=== PATIENT | male | born 1970 | race African-American/Black ===

== ENCOUNTER 2016-12-03 09:05 | Inpatient (IN) | payer OTHER ==
[2016-12-03 09:27] VITALS: BMI 28.1
--- NOTE | 2016-12-03 09:29 | HP ---
COWS - Scale Resting Pulse: 1= [place] 81-100 Sweatin= Chills/Flushing Restless Observation: 1= Difficult to Sit Still Pupil Size: 0= Normal to Room Light Bone or Joint Aches: 1= Mild Discomfort Runny Nose/ Eye Tearin= Nasal Congestion GI Upset > 30mins: 1= Stomach Cramp Tremor Observation: 1= Tremor [place], Not Seen Yawning Observation: 1= 1-2x During Session Anxiety or Irritability: 1=Feels Anxious/Irritable Goose Flesh Skin: 0=Smooth Skin COWS Score: 9 Admission ROS BHS - HPI Chief Complaint: I want my life back, I want to get off the drugs - I'm using too much heroin Allergies/Adverse Reactions: Allergies Allergy/AdvReac Type Severity Reaction Status Date / Time No Known Drug Allergies Allergy Verified 09/08/16 13:44 BOLOGNA Allergy Severe Hives Uncoded 09/08/16 13:44 History of Present Illness: 46 yo gentleman here for detox from heroin - longest time sober 8 years, last here in september 2016 for detox, tried suboxone for several months but unable to stop using heroin. No seizures. Exam Limitations: Clinical Condition - Ebola screening Have you traveled outside of the country in the last 21 days: No Have you had contact with anyone from an Ebola affected area: No Have you been sick,other than usual withdrawal symptoms: No Do you have a fever: No - Review of Systems Constitutional: Chills, Loss of Appetite, Malaise, Night Sweats, Changes in sleep EENT: reports: Blurred Vision, Nose Congestion Respiratory: reports: No Symptoms reported Cardiac: reports: No Symptoms Reported GI: reports: Diarrhea, Poor Appetite : reports: No Symptoms Reported Musculoskeletal: reports: Back Pain, Muscle Pain Integumentary: reports: Flushing Neuro: reports: Headache Endocrine: reports: No Symptoms Reported Hematology: reports: No Symptoms Reported Psychiatric: reports: Judgement Intact, Mood/Affect Appropiate, Orientated x3, Anxious Other Systems: Reviewed and Negative Patient History - Patient Medical History Hx Anemia: No Hx Asthma: No Hx Chronic Obstructive Pulmonary Disease (COPD): No Hx Cancer: No Hx Cardiac Disorders: No Hx Congestive Heart Failure: No Hx Hypertension: Yes Hx Hypercholesterolemia: No Hx Pacemaker: No HX Cerebrovascular Accident: No Hx Seizures: No Hx Dementia: No Hx Diabetes: No Hx Gastrointestinal Disorders: No Hx Liver Disease: No Hx Genitourinary Disorders: No Hx Sexually Transmitted Disorders: No Hx Renal Disease (ESRD): No Hx Thyroid Disease: No Hx Human Immunodeficiency Virus (HIV): No (NEGATIVE HX) Hx Hepatitis C: No Hx Depression: No Hx Suicide Attempt: No Hx Bipolar Disorder: No Hx Schizophrenia: No - Patient Surgical History Past Surgical History: No Hx Neurologic Surgery: No Hx Cataract Extraction: No Hx Cardiac Surgery: No Hx Lung Surgery: No Hx Breast Surgery: No Hx Breast Biopsy: No Hx Abdominal Surgery: No Hx Appendectomy: No Hx Cholecystectomy: No Hx Genitourinary Surgery: No Hx Section: No Hx Orthopedic Surgery: No Anesthesia Reaction: No - PPD History Previous Implant?: Yes Documented Results: Positive w/proof Implanted On Prior [facility] Admission?: No Date: 02/19/16 Results: 0 mm PPD to be Administered?: Yes - Reproductive History Patient is a Female of Child Bearing Age (11 -55 yrs old): No (male) - Smoking Cessation Smoking history: Current every day smoker Have you smoked in the past 12 months: Yes Aproximately how many cigarettes per day: 10 Cigars Per Day: 0 Hx Chewing Tobacco Use: No Initiated information on smoking cessation: Yes 'Breaking Loose' booklet given: 12/03/16 (give on floor) - Substance & Tx. History Hx Alcohol Use: No Hx Substance Use: Yes Substance Use Type: Heroin, Tranquilizers Hx Substance Use Treatment: Yes (detox, rehab) - Substances Abused Alprazolam (Xanax) Frequency: 1-2 times per week Amount used: 4mg Age of first use: 32 Date of Last Use: 11/29/16 Heroin Route: Inhalation Frequency: Daily Amount used: 20 bags Age of first use: 18 Date of Last Use: 12/03/16 Family Disease History - Family Disease History Family Disease History: Diabetes: Father, Other: Grandparent () Admission Physical Exam BHS - Vital Signs Vital Signs: Vital Signs - 24 hr 12/03/16 09:24 Temperature 97.6 F Pulse Rate 81 Respiratory 20 Rate Blood Pressure 132/71 - Physical General Appearance: Yes: Nourished, Appropriately Dressed, Mild Distress HEENTM: Yes: Hearing grossly Normal, Normocephalic, Normal Voice, Pharynx Normal , Nasal Congestion Respiratory: Yes: Normal Breath Sounds, No Respiratory Distress Neck: Yes: No masses,lesions,Nodules, Supple Breast: Yes: Breast Exam Deferred Cardiology: Yes: Regular Rhythm, Regular Rate Abdominal: Yes: Soft Genitourinary: Yes: Within Normal Limits Back: Yes: Normal Inspection Musculoskeletal: Yes: full range of Motion, Gait Steady, Muscle Pain Extremities: Yes: Normal Inspection, Normal Range of Motion, Non-Tender Neurological: Yes: Fully Oriented, Alert, Normal Mood/Affect, Normal Response Integumentary: Yes: Normal Color, Warm, Moist Lymphatic: Yes: Within Normal Limits - Diagnostic (1) HTN (hypertension) Current Visit: Yes Status: Chronic Qualifiers: Hypertension type: essential hypertension (2) Nicotine dependence Current Visit: Yes Status: Chronic Qualifiers: Nicotine product type: cigarettes Substance use status: uncomplicated Qualified Code(s): F17.210 - Nicotine dependence, cigarettes, uncomplicated (3) Opioid dependence with withdrawal Current Visit: Yes Status: Chronic (4) Benzodiazepine abuse Current Visit: Yes Status: Chronic Cleared for Admission [facility] - Detox or Rehab [facility] Level of Care: Medically Managed Detox Regimen/Protocol: Methadone [facility] Breath Alcohol Content Breath Alcohol Content: 0 Urine Drug Screen - Results Drug Screen Negative: No Urine Drug Screen Results: OPI-Opiates, BZO-Benzodiazepines
[2016-12-03] MEDS ORDERED: MAGNESIUM CITRATE 300 ML BOTTLE PO PRN (09:40)
[2016-12-03] MEDS ORDERED: P-EPHED 60MG/TRIPROLIDI 2.5MG TABLET PO PRN (09:40)
[2016-12-03] MEDS ORDERED: MAG HYDROX/AL HYDROX/SIMETH 30 ML UNIT-DOSE CUP PO PRN (09:40)
[2016-12-03] MEDS ORDERED: LOPERAMIDE HCL 2 MG CAPSULE PO PRN (09:40)
[2016-12-03] MEDS ORDERED: MENTHOL/PHENOL 1 EACH UD MM PRN (09:40)
[2016-12-03] MEDS ORDERED: guaiFENesin/D-METHORPHAN HB 10 ML UNIT-DOSE CUPS PO PRN (09:40)
[2016-12-03] MEDS ORDERED: MAGNESIUM HYDROX 2400MG/30ML ORAL SUSPENSION 30 ML CUP PO PRN (09:40)
[2016-12-03] MEDS ORDERED: ACETAMINOPHEN 325 MG TABLET (FP) PO PRN (09:40)
[2016-12-03] MEDS ORDERED: IBUPROFEN 400 MG TABLET (FP) PO PRN (09:40)
[2016-12-03] MEDS ORDERED: METHADONE HCL 10 MG TABLET (FOR DETOX USE ONLY) PO ONE ×2 (11:00→23:00)
[2016-12-03] MEDS: diazePAM 5 MG TABLET PO PRN ×3 (11:45→22:26)
[2016-12-03] MEDS: PRENATAL VITAMINS W/ FOLIC ACID TABLET (FP) PO SCH (11:46)
[2016-12-03] MEDS: amLODIPine BESYLATE 10 MG TABLET (FP) PO SCH (11:46)
[2016-12-03] MEDS: NICOTINE 21 MG/24 HOURS TOPICAL PATCH TD SCH (11:47)
[2016-12-03 12:44] LABS: URINE APPEARANCE CLEAR; URINE BILIRUBIN NEGATIVE (NEGATIVE); URINE BLOOD NEGATIVE (NEGATIVE); URINE COLOR DKYELLOW; URINE GLUCOSE (UA) NEGATIVE (NEGATIVE); URINE KETONE NEGATIVE (NEGATIVE); URINE LEUK ESTERASE NEGATIVE (NEGATIVE); URINE NITRITE NEGATIVE (NEGATIVE); URINE PROTEIN NEGATIVE (NEGATIVE); URINE UROBILINOGEN 4.0 E.U/dl E.U./dl (0.2-1.0)
--- NOTE | 2016-12-03 21:01 | EKG ---
Test Reason : Blood Pressure : / mmHG Vent. Rate : 072 BPM Atrial Rate : 072 BPM P-R Int : 142 ms QRS Dur : 074 ms QT Int : 412 ms P-R-T Axes : 065 029 037 degrees QTc Int : 451 ms NORMAL SINUS RHYTHM NORMAL ECG WHEN COMPARED WITH ECG OF 24-JUN-2016 00:25, CRITERIA FOR SEPTAL INFARCT ARE NO LONGER PRESENT Confirmed by MELISSA VARGAS MD ([id number]) on 12/03/2016 9:00:49 PM Referred By: Confirmed By:MELISSA VARGAS MD
[2016-12-03] MEDS ORDERED: diphenhydrAMINE HCL 50 MG CAPSULE PO PRN (22:00)
[2016-12-03] MEDS: THIAMINE HCL 100 MG TABLET (FP) PO SCH (22:25)
[2016-12-04] MEDS: diazePAM 5 MG TABLET PO PRN ×4 (03:38→19:22)
[2016-12-04] MEDS ORDERED: METHADONE HCL 10 MG TABLET (FOR DETOX USE ONLY) PO ONE (10:00)
[2016-12-04 10:19] LABS: MCH 32.9 pg (25.7-33.7); MCHC 33.8 g/dl (32.0-35.9); MEAN CELL VOLUME 97.2 fl (80-96); MEAN PLT VOLUME 8.4 fl (7.5-11.1); PLATELET COUNT 194 K/MM3 (134-434); WHITE BLOOD COUNT 6.9 K/mm3 (4.0-10.0)
[2016-12-04] MEDS: PRENATAL VITAMINS W/ FOLIC ACID TABLET (FP) PO SCH (10:36)
[2016-12-04] MEDS: amLODIPine BESYLATE 10 MG TABLET (FP) PO SCH (10:36)
[2016-12-04] MEDS: NICOTINE 21 MG/24 HOURS TOPICAL PATCH TD SCH (10:36)
[2016-12-04 10:43] LABS: ALBUMIN 3.3 g/dl (3.4-5.0); ALK PHOS 90 U/L (45-117); ANION GAP 7 (8-16); BILIRUBIN,TOTAL 0.6 mg/dL (0.2-1.0); CALCIUM 8.7 mg/dL (8.5-10.1); CO2 28 mmol/L (21-32); CREATININE 0.8 mg/dL (0.7-1.3); GLUCOSE,RANDOM 90 mg/dL (74-106); SGOT/AST 10 U/L (15-37); SGPT/ALT 42 U/L (12-78); TOT PROT 6.1 g/dl (6.4-8.2)
[2016-12-04 14:47] LABS: HIV 1 & 2 AB NEGATIVE; HIV 1 AGp24 NEGATIVE
--- NOTE | 2016-12-04 16:03 | PN ---
S CIWA - CIWA Score Nausea/Vomitin Muscle Tremors: 3 Anxiety: 4-Mod. Anxious/Guarded Agitation: 3 Paroxysmal Sweats: No Perspiration Orientation: 0-Oriented Tacttile Disturbances: 1-Very Mild Itch/Numbness Auditory Disturbances: 0-None Visual Disturbances: 0-None Headache: 3-Moderate CIWA-Ar Total Score: 16 BHS Progress Note (SOAP) Subjective: Headache, nausea, sweating, interrupted sleep, anxious Objective: 12/04/16 16:02 Last Vital Signs Temp Pulse Resp BP Pulse Ox 96.6 F L 70 18 126/87 12/04/16 13:37 12/04/16 13:37 12/04/16 13:37 12/04/16 13:37 Laboratory Tests 12/03/16 12/04/16 12/04/16 10:30 08:00 08:00 WBC 6.9 RBC 4.06 Hgb 13.3 D Hct 39.4 MCV 97.2 H MCHC 33.8 RDW 13.0 Plt Count 194 MPV 8.4 Sodium 141 Potassium 4.0 Chloride 106 Carbon Dioxide 28 Anion Gap 7 L BUN 8 Creatinine 0.8 Creat Clearance w eGFR > 60 Random Glucose 90 D Calcium 8.7 Total Bilirubin 0.6 D AST 10 L D ALT 42 Alkaline Phosphatase 90 D Total Protein 6.1 L Albumin 3.3 L Urine Color Dkyellow Urine Appearance Clear Urine pH 6.0 D Ur Specific [place] 1.026 Urine Protein Negative Urine Glucose (UA) Negative Urine Ketones Negative Urine Blood Negative Urine Nitrite Negative Urine Bilirubin Negative Urine Urobilinogen 4.0 e.u/dl Ur Leukocyte Esterase Negative RPR Titer HIV 1&2 Antibody Screen HIV P24 Antigen 12/04/16 12/04/16 08:00 08:00 WBC RBC Hgb Hct MCV MCHC RDW Plt Count MPV Sodium Potassium Chloride Carbon Dioxide Anion Gap BUN Creatinine Creat Clearance w eGFR Random Glucose Calcium Total Bilirubin AST ALT Alkaline Phosphatase Total Protein Albumin Urine Color Urine Appearance Urine pH Ur Specific [place] Urine Protein Urine Glucose (UA) Urine Ketones Urine Blood Urine Nitrite Urine Bilirubin Urine Urobilinogen Ur Leukocyte Esterase RPR Titer Nonreactive HIV 1&2 Antibody Screen Negative HIV P24 Antigen Negative Labs noted Assessment: 12/04/16 16:03 Withdrawal symptoms Plan: Continue detox
--- NOTE | 2016-12-04 16:09 | PN ---
[facility] Progress Note Note: CIWA entered in error [facility] COWS - Scale Resting Pulse: 1= [place] 81-100 Sweatin= Chills/Flushing Restless Observation: 3= Extraneous Movement Pupil Size: 0= Normal to Room Light Bone or Joint Aches: 2= Severe Diffuse Aches Runny Nose/ Eye Tearin= Runny Nose/Eyes GI Upset > 30mins: 2= Nausea/Diarrhea Tremor Observation of Outstretched Hands: 2= Slight Tremor Visible Yawning Observation: 1= 1-2x During Session Anxiety or Irritability: 2=Irritable/Anxious Goose Flesh Skin: 0=Smooth Skin COWS Score: 16
[2016-12-04] MEDS: THIAMINE HCL 100 MG TABLET (FP) PO SCH (22:38)
[2016-12-05] MEDS: diazePAM 5 MG TABLET PO PRN ×5 (00:40→19:09)
[2016-12-05] MEDS ORDERED: METHADONE HCL 5 MG TABLET (FOR DETOX USE ONLY) PO ONE (10:00)
[2016-12-05] MEDS: amLODIPine BESYLATE 10 MG TABLET (FP) PO SCH (10:24)
[2016-12-05] MEDS: NICOTINE 21 MG/24 HOURS TOPICAL PATCH TD SCH (10:24)
[2016-12-05] MEDS: PRENATAL VITAMINS W/ FOLIC ACID TABLET (FP) PO SCH (10:25)
--- NOTE | 2016-12-05 10:50 | PN ---
BHS COWS - Scale Resting Pulse: 0= [place] 80 or Below Sweatin=Flushed/Facial Moisture Restless Observation: 1= Difficult to Sit Still Pupil Size: 0= Normal to Room Light Bone or Joint Aches: 2= Severe Diffuse Aches Runny Nose/ Eye Tearin= Runny Nose/Eyes GI Upset > 30mins: 2= Nausea/Diarrhea Tremor Observation of Outstretched Hands: 2= Slight Tremor Visible Yawning Observation: 1= 1-2x During Session Anxiety or Irritability: 2=Irritable/Anxious Goose Flesh Skin: 0=Smooth Skin COWS Score: 14 BHS Progress Note (SOAP) Subjective: Anxiety,tremors,sweating,interrupted sleep,restless Objective: 12/05/16 10:48 Vital Signs - 8 hr 12/05/16 12/05/16 12/05/16 03:35 06:13 09:59 Temperature 97.8 F 97.3 F L Pulse Rate 66 64 Respiratory 18 18 18 Rate Blood Pressure 109/67 124/77 Laboratory Tests 12/03/16 12/04/16 12/04/16 10:30 08:00 08:00 WBC 6.9 RBC 4.06 Hgb 13.3 D Hct 39.4 MCV 97.2 H MCHC 33.8 RDW 13.0 Plt Count 194 MPV 8.4 Sodium 141 Potassium 4.0 Chloride 106 Carbon Dioxide 28 Anion Gap 7 L BUN 8 Creatinine 0.8 Creat Clearance w eGFR > 60 Random Glucose 90 D Calcium 8.7 Total Bilirubin 0.6 D AST 10 L D ALT 42 Alkaline Phosphatase 90 D Total Protein 6.1 L Albumin 3.3 L Urine Color Dkyellow Urine Appearance Clear Urine pH 6.0 D Ur Specific [place] 1.026 Urine Protein Negative Urine Glucose (UA) Negative Urine Ketones Negative Urine Blood Negative Urine Nitrite Negative Urine Bilirubin Negative Urine Urobilinogen 4.0 e.u/dl Ur Leukocyte Esterase Negative RPR Titer HIV 1&2 Antibody Screen HIV P24 Antigen 12/04/16 12/04/16 08:00 08:00 WBC RBC Hgb Hct MCV MCHC RDW Plt Count MPV Sodium Potassium Chloride Carbon Dioxide Anion Gap BUN Creatinine Creat Clearance w eGFR Random Glucose Calcium Total Bilirubin AST ALT Alkaline Phosphatase Total Protein Albumin Urine Color Urine Appearance Urine pH Ur Specific [place] Urine Protein Urine Glucose (UA) Urine Ketones Urine Blood Urine Nitrite Urine Bilirubin Urine Urobilinogen Ur Leukocyte Esterase RPR Titer Nonreactive HIV 1&2 Antibody Screen Negative HIV P24 Antigen Negative labs noted Assessment: 12/05/16 10:49 Withdrawal sx. Plan: continue detox
[2016-12-05] MEDS: THIAMINE HCL 100 MG TABLET (FP) PO SCH (22:32)
[2016-12-06] MEDS: diazePAM 5 MG TABLET PO PRN (05:51)
[2016-12-06] MEDS ORDERED: METHADONE HCL 5 MG TABLET (FOR DETOX USE ONLY) PO ONE (10:00)
[2016-12-06] MEDS: amLODIPine BESYLATE 10 MG TABLET (FP) PO SCH (10:28)
[2016-12-06] MEDS: NICOTINE 21 MG/24 HOURS TOPICAL PATCH TD SCH (10:28)
[2016-12-06] MEDS: PRENATAL VITAMINS W/ FOLIC ACID TABLET (FP) PO SCH (10:28)
[2016-12-06] MEDS: hydrOXYzine PAMOATE 50 MG CAPSULE (FP) PO PRN ×2 (10:28→20:19)
--- NOTE | 2016-12-06 10:47 | PN ---
BHS Progress Note (SOAP) Subjective: ANXIETY,SWEATS,FATIGUE. Objective: 12/06/16 10:47 Vital Signs Temperature 98.1 F 12/06/16 09:58 Pulse Rate 71 12/06/16 09:58 Respiratory Rate 20 12/06/16 09:58 Blood Pressure 121/73 12/06/16 09:58 O2 Sat by Pulse Oximetry (%) Assessment: 12/06/16 10:47 WITHDRAWAL SX Plan: CONTINUE DETOX
[2016-12-06] MEDS: THIAMINE HCL 100 MG TABLET (FP) PO SCH (22:40)
[2016-12-07 06:05] VITALS: BP 117/67; PULSE 73; TEMP 97.6
[2016-12-07] MEDS: PRENATAL VITAMINS W/ FOLIC ACID TABLET (FP) PO SCH (09:30)
[2016-12-07] MEDS: amLODIPine BESYLATE 10 MG TABLET (FP) PO SCH (09:30)
[2016-12-07] MEDS: NICOTINE 21 MG/24 HOURS TOPICAL PATCH TD SCH (09:31)
[2016-12-07] MEDS ORDERED: METHADONE HCL 10 MG TABLET (FOR DETOX USE ONLY) PO ONE (10:00)
--- NOTE | 2016-12-07 12:28 | DS ---
[facility] Detox Discharge Summary Admission Date: 12/03/16 Discharge Date: 12/07/16 - History Present History: Opioid Dependence, Sedative Dependence Additional Comments: DETOX COMPLETED. ALERT O X 3. NAD. Pertinent Past History: HTN - Physical Exam Results Vital Signs: Vital Signs Temperature 97.6 F 12/07/16 06:05 Pulse Rate 73 12/07/16 06:05 Respiratory Rate 18 12/07/16 06:05 Blood Pressure 117/67 12/07/16 06:05 O2 Sat by Pulse Oximetry (%) Pertinent Admission Physical Exam Findings: WITHDRAWAL SX - Treatment Hospital Course: Detox Protocol Followed, Detoxed Safely, Responded well, Discharged Condition Good - Medication Discharge Medications: Ambulatory Orders Amlodipine Besylate 10 mg PO DAILY 07/03/16 Benazepril HCl [Lotensin] 40 mg PO DAILY 07/03/16 - Diagnosis (1) HTN (hypertension) Status: Chronic Qualifiers: Hypertension type: essential hypertension (2) Opioid dependence with withdrawal Status: Acute (3) Sedative, hypnotic or anxiolytic dependence with withdrawal, uncomplicated Status: Acute - AMA Did Patient Leave Against Medical Advice: No
[2016-12-08 00:08] LABS: HCV LOG 10 5.332 (.)
[2016-12-08] MEDS ORDERED: METHADONE HCL 5 MG TABLET (FOR DETOX USE ONLY) PO ONE (06:00)
== END 2016-12-07 09:38 | disposition home or self-care (01) | DRG 773 ==
LOC: YASAS 09:05 → Y3N 10:13
PROVIDERS: ADMIT Internal Medicine; ATTEND Internal Medicine
PROC: HZ2ZZZZ Detoxification Services for Substance Abuse Treatment (ICD-10-PCS; principal; 2016-12-07)
DX: F11.23 Opioid dependence with withdrawal (principal); F17.210 Nicotine dependence, cigarettes, uncomplicated; F13.10 Sedative, hypnotic or anxiolytic abuse, uncomplicated; I10 Essential (primary) hypertension
CPT/HCPCS: 36415; 80053; 81003; 85027; 86593; 87389; 87522; 93005; 93010

== ENCOUNTER 2017-06-10 11:57 | Inpatient (IN) | payer OTHER ==
[2017-06-10 12:21] VITALS: BMI 27.0
--- NOTE | 2017-06-10 12:40 | HP ---
COWS - Scale Resting Pulse: 0= [place] 80 or Below Sweatin= Chills/Flushing Restless Observation: 1= Difficult to Sit Still Pupil Size: 0= Normal to Room Light Bone or Joint Aches: 1= Mild Discomfort Runny Nose/ Eye Tearin= Nasal Congestion GI Upset > 30mins: 1= Stomach Cramp Tremor Observation: 1= Tremor [place], Not Seen Yawning Observation: 1= 1-2x During Session Anxiety or Irritability: 1=Feels Anxious/Irritable Goose Flesh Skin: 0=Smooth Skin COWS Score: 8 Admission ROS BHS - HPI Chief Complaint: I'm ready to get my life back, being clean is the best, I want to be a good father, stop using Allergies/Adverse Reactions: Allergies Allergy/AdvReac Type Severity Reaction Status Date / Time No Known Drug Allergies Allergy Verified 12/03/16 10:18 BOLOGNA Allergy Severe Hives Uncoded 09/08/16 13:44 History of Present Illness: 46 yo gentleman here for detox from heroin - last in detox in [place] April2017 but relapsed shortly upon discharge. No seizures but does have black outs. Exam Limitations: Clinical Condition - Ebola screening Have you traveled outside of the country in the last 21 days: No Have you had contact with anyone from an Ebola affected area: No Have you been sick,other than usual withdrawal symptoms: No Do you have a fever: No - Review of Systems Constitutional: Loss of Appetite, Night Sweats, Changes in sleep, Weakness, Unintentional Wgt. Loss EENT: reports: No Symptoms Reported Respiratory: reports: No Symptoms reported Cardiac: reports: No Symptoms Reported GI: reports: Constipated, Poor Appetite : reports: No Symptoms Reported Musculoskeletal: reports: Back Pain Integumentary: reports: No Symptoms Reported Neuro: reports: Headache Endocrine: reports: No Symptoms Reported Hematology: reports: No Symptoms Reported Psychiatric: reports: Judgement Intact, Mood/Affect Appropiate, Orientated x3, Anxious Other Systems: Reviewed and Negative Patient History - Patient Medical History Hx Anemia: No Hx Asthma: No Hx Chronic Obstructive Pulmonary Disease (COPD): No Hx Cancer: No Hx Cardiac Disorders: No Hx Congestive Heart Failure: No Hx Hypertension: Yes Hx Hypercholesterolemia: No Hx Pacemaker: No HX Cerebrovascular Accident: No Hx Seizures: No Hx Dementia: No Hx Diabetes: No Hx Gastrointestinal Disorders: No Hx Liver Disease: No Hx Genitourinary Disorders: No Hx Sexually Transmitted Disorders: No Hx Renal Disease (ESRD): No Hx Thyroid Disease: No Hx Human Immunodeficiency Virus (HIV): No Hx Hepatitis C: Yes (awaiting approval med for treatement) Hx Depression: No Hx Suicide Attempt: No Hx Bipolar Disorder: No Hx Schizophrenia: No - Patient Surgical History Past Surgical History: No Hx Neurologic Surgery: No Hx Cataract Extraction: No Hx Cardiac Surgery: No Hx Lung Surgery: No Hx Breast Surgery: No Hx Breast Biopsy: No Hx Abdominal Surgery: No Hx Appendectomy: No Hx Cholecystectomy: No Hx Genitourinary Surgery: No Hx Section: No Hx Orthopedic Surgery: No Anesthesia Reaction: No - PPD History Previous Implant?: Yes Documented Results: Negative w/proof Date: 02/19/16 Results: 0 mm PPD to be Administered?: Yes - Reproductive History Patient is a Female of Child Bearing Age (11 -55 yrs old): No (male) - Smoking Cessation Smoking history: Current every day smoker Have you smoked in the past 12 months: Yes Aproximately how many cigarettes per day: 10 Cigars Per Day: 0 Hx Chewing Tobacco Use: No Initiated information on smoking cessation: Yes 'Breaking Loose' booklet given: 06/10/17 (give on floor) - Substance & Tx. History Hx Alcohol Use: No Hx Substance Use: Yes Substance Use Type: Heroin, Tranquilizers Hx Substance Use Treatment: Yes (detox, ) - Substances Abused Heroin Route: Inhalation Frequency: Daily Amount used: 20 bags Age of first use: 18 Date of Last Use: 06/10/17 Alprazolam (Xanax) Route: Oral Frequency: 1-2 times per week Amount used: 2-4 mg Age of first use: 34 Date of Last Use: 06/08/17 Family Disease History - Family Disease History Family Disease History: Other: Grandparent (), Father (living, healthy) , Mother (living, healthy), Sister (5 , healthy), Son (one - healthy), Daughter (two - healthy) Admission Physical Exam BHS - Vital Signs Vital Signs: Vital Signs - 24 hr 06/10/17 12:17 Temperature 98.1 F Pulse Rate 79 Respiratory 20 Rate Blood Pressure 138/85 - Physical General Appearance: Yes: Nourished, Appropriately Dressed, Mild Distress, Anxious HEENTM: Yes: Hearing grossly Normal, Normal ENT Inspection, Normocephalic, Normal Voice, Pharynx Normal, [place] (scarring on bridge of nose due to fall in past) Respiratory: Yes: Normal Breath Sounds, No Respiratory Distress Neck: Yes: No masses,lesions,Nodules, Supple Breast: Yes: Breast Exam Deferred Cardiology: Yes: Regular Rhythm, Regular Rate Abdominal: Yes: Soft Genitourinary: Yes: Within Normal Limits Back: Yes: Normal Inspection Musculoskeletal: Yes: full range of Motion, Gait Steady Extremities: Yes: Normal Inspection, Normal Range of Motion, Non-Tender Neurological: Yes: Fully Oriented, Alert, Motor Strength 5/5, Normal Mood/Affect Integumentary: Yes: Normal Color, Warm Lymphatic: Yes: Within Normal Limits - Diagnostic (1) Opioid dependence with withdrawal Current Visit: Yes Status: Chronic (2) Benzodiazepine abuse Current Visit: Yes Status: Chronic (3) HTN (hypertension) Current Visit: Yes Status: Chronic Qualifiers: Hypertension type: other secondary hypertension Qualified Code(s): I15.8 - Other secondary hypertension Comment: states related to drinking (4) Nicotine dependence Current Visit: Yes Status: Chronic Qualifiers: Nicotine product type: cigarettes Substance use status: uncomplicated Qualified Code(s): F17.210 - Nicotine dependence, cigarettes, uncomplicated Cleared for Admission [facility] - Detox or Rehab [facility] Level of Care: Medically Managed Detox Regimen/Protocol: Methadone [facility] Breath Alcohol Content Breath Alcohol Content: 0 Urine Drug Screen - Results Drug Screen Negative: No Urine Drug Screen Results: OPI-Opiates, BAR-Barbiturates, BZO-Benzodiazepines, MTD-Methadone
[2017-06-10] MEDS ORDERED: LOPERAMIDE HCL 2 MG CAPSULE PO PRN (12:46)
[2017-06-10] MEDS ORDERED: METHADONE HCL 10 MG TABLET (FOR DETOX USE ONLY) PO ONE ×2 (12:46→23:00)
[2017-06-10] MEDS ORDERED: MAGNESIUM CITRATE 300 ML BOTTLE PO PRN (12:46)
[2017-06-10] MEDS ORDERED: IBUPROFEN 400 MG TABLET (FP) PO PRN (12:46)
[2017-06-10] MEDS ORDERED: P-EPHED 60MG/TRIPROLIDI 2.5MG TABLET PO PRN (12:46)
[2017-06-10] MEDS ORDERED: guaiFENesin/D-METHORPHAN HB 10 ML UNIT-DOSE CUPS PO PRN (12:46)
[2017-06-10] MEDS ORDERED: MAGNESIUM HYDROX 2400MG/30ML ORAL SUSPENSION 30 ML CUP PO PRN (12:46)
[2017-06-10] MEDS ORDERED: MENTHOL/PHENOL 1 EACH UD MM PRN (12:46)
[2017-06-10] MEDS ORDERED: hydrOXYzine PAMOATE 50 MG CAPSULE (FP) PO PRN (12:46)
[2017-06-10] MEDS ORDERED: MAG HYDROX/AL HYDROX/SIMETH 30 ML UNIT-DOSE CUP PO PRN (12:46)
[2017-06-10] MEDS ORDERED: ACETAMINOPHEN 325 MG TABLET (FP) PO PRN (12:46)
[2017-06-10 15:44] LABS: URINE APPEARANCE CLEAR; URINE BILIRUBIN NEGATIVE (NEGATIVE); URINE BLOOD NEGATIVE (NEGATIVE); URINE COLOR YELLOW; URINE GLUCOSE (UA) NEGATIVE (NEGATIVE); URINE KETONE NEGATIVE (NEGATIVE); URINE LEUK ESTERASE NEGATIVE (NEGATIVE); URINE NITRITE NEGATIVE (NEGATIVE); URINE PROTEIN NEGATIVE (NEGATIVE)
[2017-06-10] MEDS ORDERED: METHADONE HCL 10 MG TABLET (FOR DETOX USE ONLY) ONE (16:23)
[2017-06-10] MEDS: NICOTINE 21 MG/24 HOURS TOPICAL PATCH TD SCH (17:03)
[2017-06-10] MEDS: diazePAM 5 MG TABLET PO PRN (20:10)
[2017-06-10] MEDS: diphenhydrAMINE HCL 50 MG CAPSULE PO PRN (22:06)
[2017-06-10] MEDS: THIAMINE HCL 100 MG TABLET (FP) PO SCH (22:06)
[2017-06-11] MEDS: diazePAM 5 MG TABLET PO PRN ×4 (05:24→22:16)
[2017-06-11] MEDS ORDERED: METHADONE HCL 10 MG TABLET (FOR DETOX USE ONLY) PO ONE (10:00)
[2017-06-11] MEDS: LISINOPRIL 20 MG TABLET (FP) PO SCH (10:04)
[2017-06-11] MEDS: amLODIPine BESYLATE 10 MG TABLET (FP) PO SCH (10:04)
[2017-06-11] MEDS: PRENATAL VITAMINS W/ FOLIC ACID TABLET (FP) PO SCH (10:04)
[2017-06-11] MEDS: NICOTINE 21 MG/24 HOURS TOPICAL PATCH TD SCH (10:05)
[2017-06-11 10:27] LABS: MCH 32.7 pg (25.7-33.7); MCHC 32.7 g/dl (32.0-35.9); MEAN CELL VOLUME 100.1 fl (80-96); MEAN PLT VOLUME 8.5 fl (7.5-11.1); PLATELET COUNT 211 K/MM3 (134-434); RDW 13.5 % (11.9-15.9); WHITE BLOOD COUNT 7.4 K/mm3 (4.0-10.0)
[2017-06-11 11:07] LABS: ALBUMIN 3.1 g/dl (3.4-5.0); ALK PHOS 102 U/L (45-117); ANION GAP 9 (8-16); BILIRUBIN,TOTAL 0.7 mg/dL (0.2-1.0); CALCIUM 8.6 mg/dL (8.5-10.1); CO2 28 mmol/L (21-32); CREATININE 0.7 mg/dL (0.7-1.3); GLUCOSE,RANDOM 115 mg/dL (74-106); SGOT/AST 18 U/L (15-37); SGPT/ALT 61 U/L (12-78)
--- NOTE | 2017-06-11 14:02 | EKG ---
Test Reason : Blood Pressure : / mmHG Vent. Rate : 063 BPM Atrial Rate : 063 BPM P-R Int : 134 ms QRS Dur : 080 ms QT Int : 430 ms P-R-T Axes : 043 040 035 degrees QTc Int : 440 ms NORMAL SINUS RHYTHM ATYPICAL R PROGRESSION IN V2 WHEN COMPARED WITH ECG OF 03-DEC-2016 12:27, DECREASE IN R VOLTAGE IN V2 REPEAT EKG IF CLINICALLY INDICATED Confirmed by CHERRIE RUEDA MD ([id number] on 06/11/2017 2:02:22 PM Referred By: Confirmed By:CHERRIE RUEDA MD
--- NOTE | 2017-06-11 14:06 | PN ---
[facility] CIWA - CIWA Score Nausea/Vomitin-Mild Nausea/No Vomiting Muscle Tremors: 3 Anxiety: 3 Agitation: 1-Slight > Activity Paroxysmal Sweats: No Perspiration Orientation: 0-Oriented Tacttile Disturbances: 3-Moderate Itch/Numb/Burn Auditory Disturbances: 2-Mild Harshness/Frighten Visual Disturbances: 3-Moderate Sensitivity Headache: 0-None Present CIWA-Ar Total Score: 16 BHS Progress Note (SOAP) Subjective: Interrupted sleep, Tremors, Fatigue. Objective: PT. A & O X 3. NO ACUTE DISTRESS 06/11/17 14:03 Vital Signs Temperature 97 F L 06/11/17 10:22 Pulse Rate 80 06/11/17 10:22 Respiratory Rate 18 06/11/17 10:22 Blood Pressure 125/88 06/11/17 10:22 O2 Sat by Pulse Oximetry (%) Laboratory Tests 06/10/17 06/11/17 06/11/17 15:35 07:00 07:00 WBC 7.4 RBC 4.14 Hgb 13.6 Hct 41.5 MCV 100.1 H MCH 32.7 MCHC 32.7 RDW 13.5 Plt Count 211 MPV 8.5 Sodium 141 Potassium 4.7 Chloride 104 Carbon Dioxide 28 Anion Gap 9 BUN 13 D Creatinine 0.7 Creat Clearance w eGFR > 60 Random Glucose 115 H D Calcium 8.6 Total Bilirubin 0.7 AST 18 D ALT 61 D Alkaline Phosphatase 102 Total Protein 6.0 L Albumin 3.1 L Urine Color Yellow Urine Appearance Clear Urine pH 5.0 Ur Specific [place] >= 1.030 H Urine Protein Negative Urine Glucose (UA) Negative Urine Ketones Negative Urine Blood Negative Urine Nitrite Negative Urine Bilirubin Negative Urine Urobilinogen 2.0 Ur Leukocyte Esterase Negative RPR Titer 06/11/17 07:00 WBC RBC Hgb Hct MCV MCH MCHC RDW Plt Count MPV Sodium Potassium Chloride Carbon Dioxide Anion Gap BUN Creatinine Creat Clearance w eGFR Random Glucose Calcium Total Bilirubin AST ALT Alkaline Phosphatase Total Protein Albumin Urine Color Urine Appearance Urine pH Ur Specific [place] Urine Protein Urine Glucose (UA) Urine Ketones Urine Blood Urine Nitrite Urine Bilirubin Urine Urobilinogen Ur Leukocyte Esterase RPR Titer Nonreactive LABS NOTED. Assessment: WITHDRAWAL SYMPTOMS. 06/11/17 14:04 Plan: CONTINUE DETOX.
[2017-06-11] MEDS: THIAMINE HCL 100 MG TABLET (FP) PO SCH (22:16)
[2017-06-11] MEDS: diphenhydrAMINE HCL 50 MG CAPSULE PO PRN (22:16)
[2017-06-12] MEDS: diazePAM 5 MG TABLET PO PRN ×4 (05:52→22:07)
[2017-06-12] MEDS ORDERED: METHADONE HCL 5 MG TABLET (FOR DETOX USE ONLY) PO ONE (10:00)
[2017-06-12] MEDS: PRENATAL VITAMINS W/ FOLIC ACID TABLET (FP) PO SCH (10:02)
[2017-06-12] MEDS: amLODIPine BESYLATE 10 MG TABLET (FP) PO SCH (10:02)
[2017-06-12] MEDS: LISINOPRIL 20 MG TABLET (FP) PO SCH (10:02)
[2017-06-12] MEDS: NICOTINE 21 MG/24 HOURS TOPICAL PATCH TD SCH (10:04)
--- NOTE | 2017-06-12 12:09 | PN ---
[facility] CIWA - CIWA Score Nausea/Vomitin-Mild Nausea/No Vomiting Muscle Tremors: 3 Anxiety: 4-Mod. Anxious/Guarded Agitation: 0-Normal Activity Paroxysmal Sweats: 3 Orientation: 0-Oriented Tacttile Disturbances: 3-Moderate Itch/Numb/Burn Auditory Disturbances: 0-None Visual Disturbances: 0-None Headache: 0-None Present CIWA-Ar Total Score: 14 BHS Progress Note (SOAP) Subjective: Anxious, Tremors, Fatigue. Objective: PT. A & O X 3. NO ACUTE DISTRESS. 06/12/17 12:06 Vital Signs Temperature 98.6 F 06/12/17 09:16 Pulse Rate 83 06/12/17 09:16 Respiratory Rate 18 06/12/17 09:16 Blood Pressure 119/77 06/12/17 09:16 O2 Sat by Pulse Oximetry (%) Laboratory Tests 06/10/17 06/11/17 06/11/17 15:35 07:00 07:00 WBC 7.4 RBC 4.14 Hgb 13.6 Hct 41.5 MCV 100.1 H MCH 32.7 MCHC 32.7 RDW 13.5 Plt Count 211 MPV 8.5 Sodium 141 Potassium 4.7 Chloride 104 Carbon Dioxide 28 Anion Gap 9 BUN 13 D Creatinine 0.7 Creat Clearance w eGFR > 60 Random Glucose 115 H D Calcium 8.6 Total Bilirubin 0.7 AST 18 D ALT 61 D Alkaline Phosphatase 102 Total Protein 6.0 L Albumin 3.1 L Urine Color Yellow Urine Appearance Clear Urine pH 5.0 Ur Specific [place] >= 1.030 H Urine Protein Negative Urine Glucose (UA) Negative Urine Ketones Negative Urine Blood Negative Urine Nitrite Negative Urine Bilirubin Negative Urine Urobilinogen 2.0 Ur Leukocyte Esterase Negative RPR Titer 06/11/17 07:00 WBC RBC Hgb Hct MCV MCH MCHC RDW Plt Count MPV Sodium Potassium Chloride Carbon Dioxide Anion Gap BUN Creatinine Creat Clearance w eGFR Random Glucose Calcium Total Bilirubin AST ALT Alkaline Phosphatase Total Protein Albumin Urine Color Urine Appearance Urine pH Ur Specific [place] Urine Protein Urine Glucose (UA) Urine Ketones Urine Blood Urine Nitrite Urine Bilirubin Urine Urobilinogen Ur Leukocyte Esterase RPR Titer Nonreactive labs noted. Assessment: 06/12/17 12:06 WITHDRAWAL SYMPTOMS. Plan: CONTINUE DETOX.
[2017-06-12] MEDS: THIAMINE HCL 100 MG TABLET (FP) PO SCH (22:07)
[2017-06-12] MEDS: diphenhydrAMINE HCL 50 MG CAPSULE PO PRN (22:08)
[2017-06-13] MEDS: diazePAM 5 MG TABLET PO PRN ×3 (02:32→11:05)
[2017-06-13] MEDS ORDERED: METHADONE HCL 5 MG TABLET (FOR DETOX USE ONLY) PO ONE (10:00)
[2017-06-13] MEDS: PRENATAL VITAMINS W/ FOLIC ACID TABLET (FP) PO SCH (10:12)
[2017-06-13] MEDS: NICOTINE 21 MG/24 HOURS TOPICAL PATCH TD SCH (10:13)
[2017-06-13] MEDS: LISINOPRIL 20 MG TABLET (FP) PO SCH (10:13)
[2017-06-13] MEDS: amLODIPine BESYLATE 10 MG TABLET (FP) PO SCH (10:13)
--- NOTE | 2017-06-13 10:41 | PN ---
[facility] Progress Note (SOAP) Subjective: DECREASED ANXIETY,SWEATS. FATIGUE. Objective: 06/13/17 10:40 Vital Signs Temperature 97.5 F L 06/13/17 08:59 Pulse Rate 75 06/13/17 08:59 Respiratory Rate 18 06/13/17 08:59 Blood Pressure 109/78 06/13/17 08:59 O2 Sat by Pulse Oximetry (%) Laboratory Last Values WBC 7.4 K/mm3 (4.0-10.0) 06/11/17 07:00 RBC 4.14 M/mm3 (4.00-5.60) 06/11/17 07:00 Hgb 13.6 GM/dL (11.7-16.9) 06/11/17 07:00 Hct 41.5 % (35.4-49) 06/11/17 07:00 MCV 100.1 fl (80-96) H 06/11/17 07:00 MCH 32.7 pg (25.7-33.7) 06/11/17 07:00 MCHC 32.7 g/dl (32.0-35.9) 06/11/17 07:00 RDW 13.5 % (11.9-15.9) 06/11/17 07:00 Plt Count 211 K/MM3 (134-434) 06/11/17 07:00 MPV 8.5 fl (7.5-11.1) 06/11/17 07:00 Sodium 141 mmol/L (136-145) 06/11/17 07:00 Potassium 4.7 mmol/L (3.5-5.1) 06/11/17 07:00 Chloride 104 mmol/L (98-107) 06/11/17 07:00 Carbon Dioxide 28 mmol/L (21-32) 06/11/17 07:00 Anion Gap 9 (8-16) 06/11/17 07:00 BUN 13 mg/dL (7-18) D 06/11/17 07:00 Creatinine 0.7 mg/dL (0.7-1.3) 06/11/17 07:00 Creat Clearance w eGFR > 60 (>60) 06/11/17 07:00 Random Glucose 115 mg/dL (74-106) H D 06/11/17 07:00 Calcium 8.6 mg/dL (8.5-10.1) 06/11/17 07:00 Total Bilirubin 0.7 mg/dL (0.2-1.0) 06/11/17 07:00 AST 18 U/L (15-37) D 06/11/17 07:00 ALT 61 U/L (12-78) D 06/11/17 07:00 Alkaline Phosphatase 102 U/L (45-117) 06/11/17 07:00 Total Protein 6.0 g/dl (6.4-8.2) L 06/11/17 07:00 Albumin 3.1 g/dl (3.4-5.0) L 06/11/17 07:00 Urine Color Yellow 06/10/17 15:35 Urine Appearance Clear 06/10/17 15:35 Urine pH 5.0 (5.0-8.0) 06/10/17 15:35 Ur Specific [place] >= 1.030 (1.005-1.025) H 06/10/17 15:35 Urine Protein Negative (NEGATIVE) 06/10/17 15:35 Urine Glucose (UA) Negative (NEGATIVE) 06/10/17 15:35 Urine Ketones Negative (NEGATIVE) 06/10/17 15:35 Urine Blood Negative (NEGATIVE) 06/10/17 15:35 Urine Nitrite Negative (NEGATIVE) 06/10/17 15:35 Urine Bilirubin Negative (NEGATIVE) 06/10/17 15:35 Urine Urobilinogen 2.0 mg/dL (0.2-1.0) 06/10/17 15:35 Ur Leukocyte Esterase Negative (NEGATIVE) 06/10/17 15:35 RPR Titer Nonreactive (NONREACTIVE) 06/11/17 07:00 Assessment: 06/13/17 10:41 WITHDRAWAL SX Plan: CONTINUE DETOX
[2017-06-13] MEDS: THIAMINE HCL 100 MG TABLET (FP) PO SCH (22:22)
[2017-06-13] MEDS: diphenhydrAMINE HCL 50 MG CAPSULE PO PRN (22:22)
[2017-06-14] MEDS ORDERED: METHADONE HCL 10 MG TABLET (FOR DETOX USE ONLY) PO ONE (10:00)
--- NOTE | 2017-06-14 10:02 | PN ---
S Progress Note (SOAP) Subjective: ANXIETY, FATIGUE. ALERT O X 3. DETOXING WELL. Objective: 06/14/17 10:00 Laboratory Last Values WBC 7.4 K/mm3 (4.0-10.0) 06/11/17 07:00 RBC 4.14 M/mm3 (4.00-5.60) 06/11/17 07:00 Hgb 13.6 GM/dL (11.7-16.9) 06/11/17 07:00 Hct 41.5 % (35.4-49) 06/11/17 07:00 MCV 100.1 fl (80-96) H 06/11/17 07:00 MCH 32.7 pg (25.7-33.7) 06/11/17 07:00 MCHC 32.7 g/dl (32.0-35.9) 06/11/17 07:00 RDW 13.5 % (11.9-15.9) 06/11/17 07:00 Plt Count 211 K/MM3 (134-434) 06/11/17 07:00 MPV 8.5 fl (7.5-11.1) 06/11/17 07:00 Sodium 141 mmol/L (136-145) 06/11/17 07:00 Potassium 4.7 mmol/L (3.5-5.1) 06/11/17 07:00 Chloride 104 mmol/L (98-107) 06/11/17 07:00 Carbon Dioxide 28 mmol/L (21-32) 06/11/17 07:00 Anion Gap 9 (8-16) 06/11/17 07:00 BUN 13 mg/dL (7-18) D 06/11/17 07:00 Creatinine 0.7 mg/dL (0.7-1.3) 06/11/17 07:00 Creat Clearance w eGFR > 60 (>60) 06/11/17 07:00 Random Glucose 115 mg/dL (74-106) H D 06/11/17 07:00 Calcium 8.6 mg/dL (8.5-10.1) 06/11/17 07:00 Total Bilirubin 0.7 mg/dL (0.2-1.0) 06/11/17 07:00 AST 18 U/L (15-37) D 06/11/17 07:00 ALT 61 U/L (12-78) D 06/11/17 07:00 Alkaline Phosphatase 102 U/L (45-117) 06/11/17 07:00 Total Protein 6.0 g/dl (6.4-8.2) L 06/11/17 07:00 Albumin 3.1 g/dl (3.4-5.0) L 06/11/17 07:00 Urine Color Yellow 06/10/17 15:35 Urine Appearance Clear 06/10/17 15:35 Urine pH 5.0 (5.0-8.0) 06/10/17 15:35 Ur Specific [place] >= 1.030 (1.005-1.025) H 06/10/17 15:35 Urine Protein Negative (NEGATIVE) 06/10/17 15:35 Urine Glucose (UA) Negative (NEGATIVE) 06/10/17 15:35 Urine Ketones Negative (NEGATIVE) 06/10/17 15:35 Urine Blood Negative (NEGATIVE) 06/10/17 15:35 Urine Nitrite Negative (NEGATIVE) 06/10/17 15:35 Urine Bilirubin Negative (NEGATIVE) 06/10/17 15:35 Urine Urobilinogen 2.0 mg/dL (0.2-1.0) 06/10/17 15:35 Ur Leukocyte Esterase Negative (NEGATIVE) 06/10/17 15:35 RPR Titer Nonreactive (NONREACTIVE) 06/11/17 07:00 Vital Signs Temperature 97.1 F L 06/14/17 09:21 Pulse Rate 72 06/14/17 09:21 Respiratory Rate 18 06/14/17 09:21 Blood Pressure 112/72 06/14/17 09:21 O2 Sat by Pulse Oximetry (%) Assessment: 06/14/17 10:00 WITHDRAWAL SX Plan: CONTINUE DETOX
[2017-06-14] MEDS: amLODIPine BESYLATE 10 MG TABLET (FP) PO SCH (10:13)
[2017-06-14] MEDS: PRENATAL VITAMINS W/ FOLIC ACID TABLET (FP) PO SCH (10:13)
[2017-06-14] MEDS: LISINOPRIL 20 MG TABLET (FP) PO SCH (10:13)
[2017-06-14] MEDS: NICOTINE 21 MG/24 HOURS TOPICAL PATCH TD SCH (10:13)
[2017-06-14] MEDS: diphenhydrAMINE HCL 50 MG CAPSULE PO PRN (22:07)
[2017-06-14] MEDS: THIAMINE HCL 100 MG TABLET (FP) PO SCH (22:07)
[2017-06-15] MEDS ORDERED: METHADONE HCL 5 MG TABLET (FOR DETOX USE ONLY) PO ONE (06:00)
--- NOTE | 2017-06-15 09:30 | DS ---
[facility] Detox Discharge Summary Admission Date: 06/10/17 Discharge Date: 06/15/17 - History Present History: Opioid Dependence, Sedative Dependence Additional Comments: DETOX COMPLETED. ALERT O X 3. NAD. INSTRUCTED TO FOLLOW UP WITH PMD AT [facility] FOR MEDICAL MANAGEMENT NEEDED. Pertinent Past History: HTN RHABDOMYOLYSIS - Physical Exam Results Vital Signs: Vital Signs Temperature 98.3 F 06/15/17 06:38 Pulse Rate 70 06/15/17 06:38 Respiratory Rate 18 06/15/17 06:38 Blood Pressure 117/82 06/15/17 06:38 O2 Sat by Pulse Oximetry (%) Pertinent Admission Physical Exam Findings: WITHDRAWAL SX Laboratory Last Values WBC 7.4 K/mm3 (4.0-10.0) 06/11/17 07:00 RBC 4.14 M/mm3 (4.00-5.60) 06/11/17 07:00 Hgb 13.6 GM/dL (11.7-16.9) 06/11/17 07:00 Hct 41.5 % (35.4-49) 06/11/17 07:00 MCV 100.1 fl (80-96) H 06/11/17 07:00 MCH 32.7 pg (25.7-33.7) 06/11/17 07:00 MCHC 32.7 g/dl (32.0-35.9) 06/11/17 07:00 RDW 13.5 % (11.9-15.9) 06/11/17 07:00 Plt Count 211 K/MM3 (134-434) 06/11/17 07:00 MPV 8.5 fl (7.5-11.1) 06/11/17 07:00 Sodium 141 mmol/L (136-145) 06/11/17 07:00 Potassium 4.7 mmol/L (3.5-5.1) 06/11/17 07:00 Chloride 104 mmol/L (98-107) 06/11/17 07:00 Carbon Dioxide 28 mmol/L (21-32) 06/11/17 07:00 Anion Gap 9 (8-16) 06/11/17 07:00 BUN 13 mg/dL (7-18) D 06/11/17 07:00 Creatinine 0.7 mg/dL (0.7-1.3) 06/11/17 07:00 Creat Clearance w eGFR > 60 (>60) 06/11/17 07:00 Random Glucose 115 mg/dL (74-106) H D 06/11/17 07:00 Calcium 8.6 mg/dL (8.5-10.1) 06/11/17 07:00 Total Bilirubin 0.7 mg/dL (0.2-1.0) 06/11/17 07:00 AST 18 U/L (15-37) D 06/11/17 07:00 ALT 61 U/L (12-78) D 06/11/17 07:00 Alkaline Phosphatase 102 U/L (45-117) 06/11/17 07:00 Total Protein 6.0 g/dl (6.4-8.2) L 06/11/17 07:00 Albumin 3.1 g/dl (3.4-5.0) L 06/11/17 07:00 Urine Color Yellow 06/10/17 15:35 Urine Appearance Clear 06/10/17 15:35 Urine pH 5.0 (5.0-8.0) 06/10/17 15:35 Ur Specific [place] >= 1.030 (1.005-1.025) H 06/10/17 15:35 Urine Protein Negative (NEGATIVE) 06/10/17 15:35 Urine Glucose (UA) Negative (NEGATIVE) 06/10/17 15:35 Urine Ketones Negative (NEGATIVE) 06/10/17 15:35 Urine Blood Negative (NEGATIVE) 06/10/17 15:35 Urine Nitrite Negative (NEGATIVE) 06/10/17 15:35 Urine Bilirubin Negative (NEGATIVE) 06/10/17 15:35 Urine Urobilinogen 2.0 mg/dL (0.2-1.0) 06/10/17 15:35 Ur Leukocyte Esterase Negative (NEGATIVE) 06/10/17 15:35 RPR Titer Nonreactive (NONREACTIVE) 06/11/17 07:00 - Treatment Hospital Course: Detox Protocol Followed, Detoxed Safely, Responded well, Discharged Condition Good, Rehab Referral Accepted Patient has Accepted a Rehab Referral to: [facility] [address] [place] [address] - Medication Discharge Medications: Ambulatory Orders Amlodipine Besylate 10 mg PO DAILY 07/03/16 Benazepril HCl [Lotensin] 40 mg PO DAILY 07/03/16 - Diagnosis (1) HTN (hypertension) Current Visit: Yes Status: Chronic Qualifiers: Hypertension type: essential hypertension Qualified Code(s): I10 - Essential (primary) hypertension (2) Nicotine dependence Current Visit: Yes Status: Acute Qualifiers: Nicotine product type: cigarettes Substance use status: uncomplicated Qualified Code(s): F17.210 - Nicotine dependence, cigarettes, uncomplicated (3) Opioid dependence with withdrawal Current Visit: Yes Status: Acute (4) Sedative, hypnotic or anxiolytic dependence with withdrawal, uncomplicated Current Visit: Yes Status: Acute - AMA Did Patient Leave Against Medical Advice: No
[2017-06-15 09:36] VITALS: BP 119/78; PULSE 73; TEMP 97.6
[2017-06-15] MEDS: amLODIPine BESYLATE 10 MG TABLET (FP) PO SCH (10:18)
[2017-06-15] MEDS: PRENATAL VITAMINS W/ FOLIC ACID TABLET (FP) PO SCH (10:18)
[2017-06-15] MEDS: LISINOPRIL 20 MG TABLET (FP) PO SCH (10:18)
[2017-06-15] MEDS: NICOTINE 21 MG/24 HOURS TOPICAL PATCH TD SCH (10:19)
== END 2017-06-15 10:49 | disposition home or self-care (01) | DRG 773 ==
LOC: YASAS 11:57 → Y3N 13:05
PROVIDERS: ADMIT Internal Medicine Addiction Medicine; ATTEND Internal Medicine Addiction Medicine
PROC: HZ2ZZZZ Detoxification Services for Substance Abuse Treatment (ICD-10-PCS; principal; 2017-06-10)
DX: F11.23 Opioid dependence with withdrawal (principal); F13.230 Sedative, hypnotic or anxiolytic dependence with withdrawal, uncomplicated; F17.210 Nicotine dependence, cigarettes, uncomplicated; I10 Essential (primary) hypertension; B18.2 Chronic viral hepatitis C; Z91.018 Allergy to other foods
CPT/HCPCS: 36415; 80053; 81003; 85027; 86593; 93005; 93010

== ENCOUNTER 2018-09-08 10:55 | Inpatient (IN) | payer OTHER ==
[2018-09-08 11:40] VITALS: BMI 29.0
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
[2018-09-08] MEDS ORDERED: MAGNESIUM CITRATE 300 ML BOTTLE PO PRN (13:15)
[2018-09-08] MEDS ORDERED: P-EPHED 60MG/TRIPROLIDI 2.5MG TABLET PO PRN (13:15)
[2018-09-08] MEDS ORDERED: ACETAMINOPHEN 325 MG TABLET (FP) PO PRN (13:15)
[2018-09-08] MEDS ORDERED: MENTHOL/PHENOL 1 EACH UD MM PRN (13:15)
[2018-09-08] MEDS ORDERED: MAG HYDROX/AL HYDROX/SIMETH 30 ML UNIT-DOSE CUP PO PRN (13:15)
[2018-09-08] MEDS ORDERED: IBUPROFEN 400 MG TABLET (FP) PO PRN (13:15)
[2018-09-08] MEDS ORDERED: LOPERAMIDE HCL 2 MG CAPSULE PO PRN (13:15)
[2018-09-08] MEDS ORDERED: guaiFENesin/D-METHORPHAN HB 10 ML UNIT-DOSE CUPS PO PRN (13:15)
[2018-09-08] MEDS ORDERED: MAGNESIUM HYDROX 2400MG/30ML ORAL SUSPENSION 30 ML CUP PO PRN (13:15)
[2018-09-08] MEDS ORDERED: diazePAM 5 MG TABLET PO ONE (14:15)
[2018-09-08] MEDS: NICOTINE 21 MG/24 HOURS TOPICAL PATCH TD SCH (14:50)
[2018-09-08] MEDS: BACITRACIN 0.9 GM PACKET TP SCH (14:50)
[2018-09-08] MEDS: BUPRENORPHINE/NALOXONE 8 MG/2 MG FILM PACKET SL SCH ×2 (14:54→22:39)
[2018-09-08] MEDS: diazePAM 5 MG TABLET PO SCH ×2 (14:54→22:39)
[2018-09-08] MEDS: diazePAM 5 MG TABLET PO PRN (20:33)
[2018-09-08] MEDS ORDERED: MELATONIN 5 MG TABLETS PO PRN (22:00)
[2018-09-08] MEDS: THIAMINE HCL 100 MG TABLET (FP) PO SCH (22:39)
[2018-09-09] MEDS: diazePAM 5 MG TABLET PO SCH ×3 (05:55→22:21)
[2018-09-09] MEDS: BUPRENORPHINE/NALOXONE 8 MG/2 MG FILM PACKET SL SCH ×3 (05:55→22:20)
[2018-09-09] MEDS: diazePAM 5 MG TABLET PO PRN ×2 (08:28→12:31)
[2018-09-09 10:42] LABS: HEMATOCRIT 46.3 % (35.4-49); MCH 32.4 pg (25.7-33.7); MCHC 32.4 g/dl (32.0-35.9); MEAN PLT VOLUME 8.7 fl (7.5-11.1); PLATELET COUNT 219 K/MM3 (134-434); RBC 4.63 M/mm3 (4.00-5.60); RDW 12.7 % (11.9-15.9); WHITE BLOOD COUNT 6.9 K/mm3 (4.0-10.0)
[2018-09-09] MEDS: PRENATAL VITAMINS W/ FOLIC ACID TABLET (FP) PO SCH (10:42)
[2018-09-09] MEDS: NICOTINE 21 MG/24 HOURS TOPICAL PATCH TD SCH (10:42)
[2018-09-09] MEDS: amLODIPine BESYLATE 10 MG TABLET (FP) PO SCH (10:42)
[2018-09-09] MEDS: BACITRACIN 0.9 GM PACKET TP SCH (10:42)
[2018-09-09 10:49] LABS: ALBUMIN 3.2 g/dl (3.4-5.0); ALK PHOS 100 U/L (45-117); ANION GAP 8 MMOL/L (8-16); BILIRUBIN,TOTAL 0.7 mg/dL (0.2-1); BLOOD UREA NITROGEN 9 mg/dL (7-18); CALCIUM 8.8 mg/dL (8.5-10.1); CHLORIDE 105 mmol/L (98-107); CO2 27 mmol/L (21-32); CREATININE 0.9 mg/dL (0.55-1.3); GLUCOSE,RANDOM 142 mg/dL (74-106); POTASSIUM 4.4 mmol/L (3.5-5.1); SGOT/AST 97 U/L (15-37); SGPT/ALT 84 U/L (13-61); SODIUM 140 mmol/L (136-145); TOT PROT 6.4 g/dl (6.4-8.2)
--- NOTE | 2018-09-09 13:20 | PN ---
[facility] CIWA - CIWA Score Nausea/Vomitin Muscle Tremors: 4-Moderate,w/Arms Extend Anxiety: 4-Mod. Anxious/Guarded Agitation: 4-Moderately Restless Paroxysmal Sweats: 3 Orientation: 0-Oriented Tacttile Disturbances: 1-Very Mild Itch/Numbness Auditory Disturbances: 0-None Visual Disturbances: 0-None Headache: 0-None Present CIWA-Ar Total Score: 18 [facility] Progress Note (SOAP) Subjective: Chills, sweating, diarrhea, interrupted sleep, runny nose Objective: 09/09/18 13:14 Last Vital Signs Temp Pulse Resp BP Pulse Ox 96.9 F L 78 18 115/70 09/09/18 09:30 09/09/18 09:30 09/09/18 09:30 09/09/18 09:30 Laboratory Tests 09/09/18 09/09/18 09/09/18 07:10 07:10 07:10 WBC 6.9 RBC 4.63 Hgb 15.0 Hct 46.3 MCV 100.0 H MCH 32.4 MCHC 32.4 RDW 12.7 Plt Count 219 MPV 8.7 Sodium 140 Potassium 4.4 Chloride 105 Carbon Dioxide 27 Anion Gap 8 BUN 9 Creatinine 0.9 Creat Clearance w eGFR > 60 Random Glucose 142 H Calcium 8.8 Total Bilirubin 0.7 AST 97 H ALT 84 H Alkaline Phosphatase 100 Total Protein 6.4 Albumin 3.2 L RPR Titer Nonreactive Labs reviewed: glucose 142 Assessment: 09/09/18 13:20 Withdrawal symptoms Noted with hyperglycemia Plan: Continue detox Hyperglycemia: encouraged PO water intake, repeat fasting glucose Follow up on admission [facility]
[2018-09-09] MEDS: THIAMINE HCL 100 MG TABLET (FP) PO SCH (22:21)
[2018-09-10] MEDS: BUPRENORPHINE/NALOXONE 8 MG/2 MG FILM PACKET SL SCH ×3 (06:09→22:26)
[2018-09-10] MEDS: diazePAM 5 MG TABLET PO PRN ×3 (06:11→18:08)
--- NOTE | 2018-09-10 09:41 | PN ---
S CIWA - CIWA Score Nausea/Vomitin-No Nausea/No Vomiting Muscle Tremors: 3 Anxiety: 4-Mod. Anxious/Guarded Agitation: 4-Moderately Restless Paroxysmal Sweats: 1-Minimal Palms Moist Orientation: 0-Oriented Tacttile Disturbances: 0-None Auditory Disturbances: 0-None Visual Disturbances: 0-None Headache: 1-Very Mild CIWA-Ar Total Score: 13 [facility] Progress Note (SOAP) Subjective: tremor sweat anxiety restlessness had good night sleep able to social with peers in day room Objective: 09/10/18 09:38 Vital Signs Temperature 98.6 F 09/10/18 09:18 Pulse Rate 77 09/10/18 09:18 Respiratory Rate 18 09/10/18 09:18 Blood Pressure 121/75 09/10/18 09:18 O2 Sat by Pulse Oximetry (%) Laboratory Last Values WBC 6.9 K/mm3 (4.0-10.0) 09/09/18 07:10 RBC 4.63 M/mm3 (4.00-5.60) 09/09/18 07:10 Hgb 15.0 GM/dL (11.7-16.9) 09/09/18 07:10 Hct 46.3 % (35.4-49) 09/09/18 07:10 MCV 100.0 fl (80-96) H 09/09/18 07:10 MCH 32.4 pg (25.7-33.7) 09/09/18 07:10 MCHC 32.4 g/dl (32.0-35.9) 09/09/18 07:10 RDW 12.7 % (11.9-15.9) 09/09/18 07:10 Plt Count 219 K/MM3 (134-434) 09/09/18 07:10 MPV 8.7 fl (7.5-11.1) 09/09/18 07:10 Sodium 140 mmol/L (136-145) 09/09/18 07:10 Potassium 4.4 mmol/L (3.5-5.1) 09/09/18 07:10 Chloride 105 mmol/L (98-107) 09/09/18 07:10 Carbon Dioxide 27 mmol/L (21-32) 09/09/18 07:10 Anion Gap 8 MMOL/L (8-16) 09/09/18 07:10 BUN 9 mg/dL (7-18) 09/09/18 07:10 Creatinine 0.9 mg/dL (0.55-1.3) 09/09/18 07:10 Creat Clearance w eGFR > 60 (>60) 09/09/18 07:10 Random Glucose 142 mg/dL (74-106) H 09/09/18 07:10 Calcium 8.8 mg/dL (8.5-10.1) 09/09/18 07:10 Total Bilirubin 0.7 mg/dL (0.2-1) 09/09/18 07:10 AST 97 U/L (15-37) H 09/09/18 07:10 ALT 84 U/L (13-61) H 09/09/18 07:10 Alkaline Phosphatase 100 U/L (45-117) 09/09/18 07:10 Total Protein 6.4 g/dl (6.4-8.2) 09/09/18 07:10 Albumin 3.2 g/dl (3.4-5.0) L 09/09/18 07:10 RPR Titer Nonreactive (NONREACTIVE) 09/09/18 07:10 lab noted urine result pending hyperglycemia = no concentrated diet weight loss informed due to bmi 29 Assessment: 09/10/18 09:40 withdrawal sx Plan: continue detox
[2018-09-10] MEDS: diazePAM 5 MG TABLET PO SCH ×2 (10:15→22:23)
[2018-09-10] MEDS: amLODIPine BESYLATE 10 MG TABLET (FP) PO SCH (10:15)
[2018-09-10] MEDS: PRENATAL VITAMINS W/ FOLIC ACID TABLET (FP) PO SCH (10:15)
[2018-09-10] MEDS: BACITRACIN 0.9 GM PACKET TP SCH (10:15)
[2018-09-10] MEDS: NICOTINE 21 MG/24 HOURS TOPICAL PATCH TD SCH (10:16)
[2018-09-10] MEDS: THIAMINE HCL 100 MG TABLET (FP) PO SCH (22:23)
[2018-09-10 23:18] LABS: URINE APPEARANCE CLEAR; URINE BILIRUBIN NEGATIVE (<2.0 mg/dL); URINE COLOR YELLOW; URINE GLUCOSE (UA) NEGATIVE (NEGATIVE); URINE KETONE NEGATIVE (NEGATIVE); URINE LEUK ESTERASE NEGATIVE (NEGATIVE); URINE NITRITE NEGATIVE (NEGATIVE); URINE PROTEIN NEGATIVE (NEGATIVE); URINE UROBILINOGEN 4.0 E.U/dl mg/dL (0.2-1.0)
[2018-09-11] MEDS: diazePAM 5 MG TABLET PO PRN ×2 (02:54→07:31)
[2018-09-11] MEDS: BUPRENORPHINE/NALOXONE 8 MG/2 MG FILM PACKET SL SCH (06:02)
[2018-09-11] MEDS: BACITRACIN 0.9 GM PACKET TP SCH (10:05)
[2018-09-11] MEDS: PRENATAL VITAMINS W/ FOLIC ACID TABLET (FP) PO SCH (10:05)
[2018-09-11] MEDS: amLODIPine BESYLATE 10 MG TABLET (FP) PO SCH (10:05)
[2018-09-11] MEDS: NICOTINE 21 MG/24 HOURS TOPICAL PATCH TD SCH (10:06)
[2018-09-11] MEDS: diazePAM 5 MG TABLET PO SCH (10:06)
[2018-09-11 10:17] VITALS: BP 102/64; PULSE 72; TEMP 97.3
--- NOTE | 2018-09-11 11:04 | DS ---
[facility] Detox Discharge Summary Admission Date: 09/08/18 Discharge Date: 09/11/18 - History Present History: Opioid Dependence, Sedative Dependence, MMTP - Physical Exam Results Vital Signs: Vital Signs Temperature 97.3 F L 09/11/18 09:45 Pulse Rate 72 09/11/18 09:45 Respiratory Rate 20 09/11/18 09:45 Blood Pressure 102/64 09/11/18 09:45 O2 Sat by Pulse Oximetry (%) Pertinent Admission Physical Exam Findings: Pt was admitted for heroin use and benzo use. Pt has an active prescription for Suboxone- which he says he does not use and not present in adm UTox. Pt was admitted for a valium taper for benzo use. Pt was detoxed with Valium and states he is ready to go to rehab today- a couple of doses shy of completing detox. Pt is without complaints today - Treatment Hospital Course: Detox Protocol Followed, Detoxed Safely, Responded well, Discharged Condition Good, Rehab Referral Accepted - Medication Discharge Medications: Ambulatory Orders Amlodipine Besylate 10 mg PO DAILY 07/03/16 Buprenorphine/Naloxone [Suboxone 8Mg/2Mg Sl Film -] 3 each SL DAILY 09/08/18 - AMA Did Patient Leave Against Medical Advice: No
[2018-09-12] MEDS ORDERED: diazePAM 5 MG TABLET PO SCH (10:00)
== END 2018-09-11 11:00 | disposition other institution (70) | DRG 773 ==
LOC: YASAS 10:55 → Y3N 13:51
PROC: HZ2ZZZZ Detoxification Services for Substance Abuse Treatment (ICD-10-PCS; principal; 2018-09-08)
DX: F13.230 Sedative, hypnotic or anxiolytic dependence with withdrawal, uncomplicated (principal); F11.20 Opioid dependence, uncomplicated; F17.210 Nicotine dependence, cigarettes, uncomplicated; I10 Essential (primary) hypertension; B18.2 Chronic viral hepatitis C; R73.9 Hyperglycemia, unspecified; T20.16XA Burn of first degree of forehead and cheek, initial encounter; X08.8XXA Exposure to other specified smoke, fire and flames, initial encounter; Y93.89 Activity, other specified; Y92.89 Other specified places as the place of occurrence of the external cause; Y99.8 Other external cause status
CPT/HCPCS: 36415; 80053; 81003; 85027; 86593

== ENCOUNTER 2018-09-11 11:07 | Inpatient (IN) | payer OTHER ==
[2018-09-11] MEDS ORDERED: P-EPHED 60MG/TRIPROLIDI 2.5MG TABLET PO PRN (12:07)
[2018-09-11] MEDS ORDERED: MAGNESIUM CITRATE 300 ML BOTTLE PO PRN (12:07)
[2018-09-11] MEDS ORDERED: MAG HYDROX/AL HYDROX/SIMETH 30 ML UNIT-DOSE CUP PO PRN (12:07)
[2018-09-11] MEDS ORDERED: guaiFENesin/D-METHORPHAN HB 10 ML UNIT-DOSE CUPS PO PRN (12:07)
[2018-09-11] MEDS ORDERED: LOPERAMIDE HCL 2 MG CAPSULE PO PRN (12:07)
[2018-09-11] MEDS ORDERED: ACETAMINOPHEN 325 MG TABLET (FP) PO PRN (12:07)
[2018-09-11] MEDS ORDERED: MENTHOL/PHENOL 1 EACH UD MM PRN (12:07)
[2018-09-11] MEDS ORDERED: IBUPROFEN 400 MG TABLET (FP) PO PRN (12:07)
[2018-09-11] MEDS ORDERED: MAGNESIUM HYDROX 2400MG/30ML ORAL SUSPENSION 30 ML CUP PO PRN (12:07)
--- NOTE | 2018-09-11 12:07 | HP ---
[facility] Rehab Assess/Revision - Admission History Date of Admission to Rehab: 09/11/18 - Vital signs Vital Signs: Vital Signs Period Temp Pulse Resp BP Sys/Araya Pulse Ox Last 24 Hr 98.2 F 79 18 118/74 - Findings Detox History & Physical reviewed: Yes Concur with findings: Yes (had opiates, benzo in urine no bupe. Continued on Suboxone withvalium detox) Inpatient Rehab Admission - Initial Determination Are CD services needed?: Yes Free of communicable disease: Yes Not in need of hospitalization: Yes - Rehab Admission Criteria Previous failed treatment: Yes Poor recovery environment: Yes Comorbidities: Yes Lacks judgement: No Patient is meeting Inpatient Rehab admission criteria:: Yes
[2018-09-11] MEDS ORDERED: BACITRACIN 0.9 GM PACKET TP PRN (14:30)
[2018-09-11] MEDS ORDERED: MELATONIN 5 MG TABLETS PO PRN (22:00)
[2018-09-11] MEDS: THIAMINE HCL 100 MG TABLET (FP) PO SCH (22:10)
--- NOTE | 2018-09-12 07:25 | HP ---
Psychiatrist Admission - Data Date of interview: 09/12/18 Admission source: 3N Identifying data: This is the second [facility] admission for this 48 years old single Black male, father of 3 children, unemployed with no source of income, homeless Medical History: Significant for hypertension, hepatitis C. Smokes 10 cigarettes daily Psychiatric History: Denies history of previous psychiatric treatment Physical/Sexual Abuse/Trauma History: Denies history of emotional, physical or sexual abuse as well as DV relationship Additional Comment: Reports history of multiple previous arrests including 2 felony convictions. Denies Vital Signs: Vital Signs - 24 hr 09/11/18 09/12/18 09/12/18 11:17 03:30 07:05 Temperature 98.2 F 98.1 F Pulse Rate 79 71 Respiratory 18 18 18 Rate Blood Pressure 118/74 142/96 Allergies/Adverse Reactions: Allergies Allergy/AdvReac Type Severity Reaction Status Date / Time No Known Drug Allergies Allergy Verified 06/13/17 01:06 B[place] Allergy Severe Hives Uncoded 06/13/17 01:06 Date of last physical exam: 09/08/18 Concur with the findings of this exam: Yes - Substance Abuse/Tx History Hx Alcohol Use: No Hx Substance Use: Yes Substance Use Type: Heroin (Started using heroin at age 17, consumes 10 bags daily. Last used on 09/08/18), Tranquilizers (Started using xanax at age 24, consumes 4 mg/day. Last used on 09/07/18) Hx Substance Use Treatment: Yes (8 previous inpt dtox & one inpt rehab admissions @ [facility]) Mental Status Exam - Mental Status Exam Alert and Oriented to: Time, Place, Person Cognitive Function: Fair Patient Appearance: Disheveled Mood: Hopeful, Euthymic Patient Behavior: Cooperative Speech Pattern: Clear Voice Loudness: Normal Thought Process: Intact, Goal Oriented Hallucinations: Denies Suicidal Ideation: Denies Homicidal Ideation: Denies Insight/Judgement: Fair Sleep: Poorly Appetite: Good Muscle strength/Tone: Normal Gait/Station: Normal Psychiatric Findings - Problem List ([place] 1, 2,3) (1) Sedative hypnotic or anxiolytic dependence Current Visit: Yes Status: Acute (2) Opioid dependence on agonist therapy Current Visit: No Status: Acute (3) Nicotine dependence Current Visit: No Status: Chronic Qualifiers: (4) HTN (hypertension) Current Visit: No Status: Chronic Qualifiers: Hypertension type: essential hypertension Qualified Code(s): I10 - Essential (primary) hypertension Comment: states related to drinking (5) Hepatitis C Current Visit: No Status: Chronic - Initial Treatment Plan Initial Treatment Plan: 1) Start Melatonin 10 mg po HS prn for insomnia. 2) Monitor progress
--- NOTE | 2018-09-12 09:15 | PN ---
S Progress Note Note: PATIENT SEEN FOR EVALUATION OF BP. PATIENT STATES HE HAS H/O HTN AND TREATED WITH AMLODIPINE. DENIES CP, SOB AND DIZZINESS. C/O MILD HEADACHE. Vital Signs Temperature 98.1 F 09/12/18 07:05 Pulse Rate 71 09/12/18 07:05 Respiratory Rate 18 09/12/18 07:05 Blood Pressure 142/96 09/12/18 07:05 O2 Sat by Pulse Oximetry (%) PE: SKIN WARM AND DRY, +HEALING ABRASION TO FOREHEAD AREA CAR S1S2 RESP CTA BL EXT FULL ROM,NO EDEMA A/P: ELEVATED BP WILL ORDER NORVASC 5MG DAILY REINALDO DIET CONTINUE TO MONITOR CLINICALLY
[2018-09-12] MEDS: PRENATAL VITAMINS W/ FOLIC ACID TABLET (FP) PO SCH (09:53)
[2018-09-12] MEDS: amLODIPine BESYLATE 5 MG TABLET (FP) PO SCH (09:53)
[2018-09-12] MEDS: BACITRACIN 0.9 GM PACKET TP SCH ×2 (09:53→21:10)
[2018-09-12] MEDS: THIAMINE HCL 100 MG TABLET (FP) PO SCH (21:10)
[2018-09-12] MEDS: MELATONIN 5 MG TABLETS PO PRN (21:10)
[2018-09-13] MEDS ORDERED: NICOTINE POLACRILEX 2 MG GUM BUC PRN (07:26)
[2018-09-13] MEDS: amLODIPine BESYLATE 5 MG TABLET (FP) PO SCH (10:07)
[2018-09-13] MEDS: PRENATAL VITAMINS W/ FOLIC ACID TABLET (FP) PO SCH (10:07)
[2018-09-13] MEDS: BACITRACIN 0.9 GM PACKET TP SCH ×2 (10:07→21:43)
[2018-09-13] MEDS: THIAMINE HCL 100 MG TABLET (FP) PO SCH (21:43)
[2018-09-13] MEDS: MELATONIN 5 MG TABLETS PO PRN (21:43)
[2018-09-14] MEDS: amLODIPine BESYLATE 5 MG TABLET (FP) PO SCH (10:19)
[2018-09-14] MEDS: PRENATAL VITAMINS W/ FOLIC ACID TABLET (FP) PO SCH (10:19)
[2018-09-14] MEDS: BACITRACIN 0.9 GM PACKET TP SCH ×2 (10:20→21:56)
[2018-09-14] MEDS: hydrOXYzine PAMOATE 50 MG CAPSULE (FP) PO PRN ×2 (14:46→21:56)
[2018-09-14] MEDS: NICOTINE 21 MG/24 HOURS TOPICAL PATCH TD SCH (15:42)
[2018-09-14] MEDS: THIAMINE HCL 100 MG TABLET (FP) PO SCH (21:56)
[2018-09-14] MEDS: MELATONIN 5 MG TABLETS PO PRN (21:56)
[2018-09-15] MEDS: PRENATAL VITAMINS W/ FOLIC ACID TABLET (FP) PO SCH (10:28)
[2018-09-15] MEDS: BACITRACIN 0.9 GM PACKET TP SCH ×2 (10:28→21:47)
[2018-09-15] MEDS: amLODIPine BESYLATE 5 MG TABLET (FP) PO SCH (10:28)
[2018-09-15] MEDS: hydrOXYzine PAMOATE 50 MG CAPSULE (FP) PO PRN ×3 (10:29→21:47)
[2018-09-15] MEDS: NICOTINE 21 MG/24 HOURS TOPICAL PATCH TD SCH (10:29)
[2018-09-15] MEDS: THIAMINE HCL 100 MG TABLET (FP) PO SCH (21:47)
[2018-09-15] MEDS: MELATONIN 5 MG TABLETS PO PRN (21:48)
[2018-09-16] MEDS: hydrOXYzine PAMOATE 50 MG CAPSULE (FP) PO PRN ×4 (06:12→21:53)
[2018-09-16] MEDS: NICOTINE 21 MG/24 HOURS TOPICAL PATCH TD SCH (10:25)
[2018-09-16] MEDS: BACITRACIN 0.9 GM PACKET TP SCH ×2 (10:25→21:54)
[2018-09-16] MEDS: PRENATAL VITAMINS W/ FOLIC ACID TABLET (FP) PO SCH (10:25)
[2018-09-16] MEDS: amLODIPine BESYLATE 5 MG TABLET (FP) PO SCH (10:25)
[2018-09-16] MEDS: MELATONIN 5 MG TABLETS PO PRN (21:54)
[2018-09-16] MEDS: THIAMINE HCL 100 MG TABLET (FP) PO SCH (21:54)
[2018-09-17] MEDS: BACITRACIN 0.9 GM PACKET TP SCH ×2 (10:39→21:45)
[2018-09-17] MEDS: hydrOXYzine PAMOATE 50 MG CAPSULE (FP) PO PRN ×3 (10:39→21:44)
[2018-09-17] MEDS: amLODIPine BESYLATE 5 MG TABLET (FP) PO SCH (10:39)
[2018-09-17] MEDS: NICOTINE 21 MG/24 HOURS TOPICAL PATCH TD SCH (10:39)
[2018-09-17] MEDS: PRENATAL VITAMINS W/ FOLIC ACID TABLET (FP) PO SCH (10:39)
[2018-09-17] MEDS: THIAMINE HCL 100 MG TABLET (FP) PO SCH (21:43)
[2018-09-17] MEDS: MELATONIN 5 MG TABLETS PO PRN (21:44)
[2018-09-18] MEDS: PRENATAL VITAMINS W/ FOLIC ACID TABLET (FP) PO SCH (06:48)
[2018-09-18] MEDS: hydrOXYzine PAMOATE 50 MG CAPSULE (FP) PO PRN (06:49)
[2018-09-18] MEDS: amLODIPine BESYLATE 5 MG TABLET (FP) PO SCH (06:49)
[2018-09-18 07:05] VITALS: BP 130/83; PULSE 80; TEMP 98.2
== END 2018-09-18 07:20 | disposition home or self-care (01) | DRG 772 ==
LOC: YASAS 11:07 → Y3W 11:09
PROVIDERS: ADMIT Psychiatry & Neurology Psychiatry; ATTEND Psychiatry & Neurology Psychiatry
PROC: HZ42ZZZ Group Counseling for Substance Abuse Treatment, Cognitive-Behavioral (ICD-10-PCS; principal; 2018-09-11)
DX: F13.20 Sedative, hypnotic or anxiolytic dependence, uncomplicated (principal); F11.20 Opioid dependence, uncomplicated; F17.210 Nicotine dependence, cigarettes, uncomplicated; I10 Essential (primary) hypertension; B18.2 Chronic viral hepatitis C
CPT/HCPCS: 82962

== ENCOUNTER 2019-04-08 19:28 | Inpatient (IN) | payer OTHER ==
[~2019-04-08 19:28] MED LIST: diazePAM 5 MG TABLET PO SCH
[2019-04-08 20:54] VITALS: BMI 28.1
--- NOTE | 2019-04-08 22:52 | HP ---
COWS - Scale Resting Pulse: 0= [place] 80 or Below Sweatin=Flushed/Facial Moisture Restless Observation: 0= Sits Still Pupil Size: 1= Pupils >than Normal Bone or Joint Aches: 4=Acute Joint/Muscle Pain Runny Nose/ Eye Tearin= Runny Nose/Eyes GI Upset > 30mins: 3= Vomiting/Diarrhea (vomiting x 2, diarrhea x 3) Tremor Observation: 4= Gross Tremor/Twitching Yawning Observation: 0= None Anxiety or Irritability: 2=Irritable/Anxious Goose Flesh Skin: 0=Smooth Skin COWS Score: 18 CIWA Score Nausea/Vomitin Muscle Tremors: 4-Moderate,w/Arms Extend Anxiety: 3 Agitation: 4-Moderately Restless Paroxysmal Sweats: 3 Orientation: 0-Oriented Tacttile Disturbances: 0-None Auditory Disturbances: 0-None Visual Disturbances: 0-None Headache: 0-None Present CIWA-Ar Total Score: 17 - Admission Criteria OASAS Guidelines: Admission for Medically Managed Detox: Requires at least one of the followin. CIWA greater than 12 2. Seizures within the past 24 hours 3. Delirium tremens within the past 24 hours 4. Hallucinations within the past 24 hours 5. Acute intervention needed for co occurring medical disorder 6. Acute intervention needed for co occurring psychiatric disorder 7. Severe withdrawal that cannot be handled at a lower level of care (continued vomiting, continued diarrhea, abnormal vital signs) requiring intravenous medication and/or fluids 8. Admission [facility] Chief Complaint: Heroine and benzo withdrawal symptoms Allergies/Adverse Reactions: Allergies Allergy/AdvReac Type Severity Reaction Status Date / Time No Known Drug Allergies Allergy Verified 04/08/19 20:48 [facility] Allergy Severe Hives Uncoded 04/08/19 20:48 History of Present Illness: 48 years old male with 30 years of heroin dependence and 20 years of benzo. dependence is seeking admission to detox. Patient has been to multiple detox, last at [facility] in [place]. He reports 10 years of sobriety. He has history of hypertension and Hep. C. He denies suicidal ideation at this time. Patient was dispensed 90 films of buprenorphine- naloxone 8-2mg sL film for 30 days supply on 03/26/2019 by Miah SANTANA. Patient reports that he is not using suboxone. Exam Limitations: No Limitations - Ebola screening Have you traveled outside of the country in the last 21 days: No (N) Have you had contact with anyone from an Ebola affected area: No Do you have a fever: No - Review of Systems Constitutional: Chills, Loss of Appetite, Malaise, Night Sweats, Unexplained wgt Loss (reports loss of 20 pounds) EENT: reports: Sinus Pressure Respiratory: reports: No Symptoms reported Cardiac: reports: No Symptoms Reported GI: reports: Diarrhea, Poor Appetite, Vomiting, Abdominal cramping Musculoskeletal: reports: Back Pain, Joint Pain, Muscle Pain Integumentary: reports: Dryness, Flushing Neuro: reports: Headache, Tremors Endocrine: reports: No Symptoms Reported Hematology: reports: No Symptoms Reported Psychiatric: reports: Mood/Affect Appropiate, Orientated x3 Other Systems: Reviewed and Negative Patient History - Patient Medical History Hx Anemia: No Hx Asthma: No Hx Chronic Obstructive Pulmonary Disease (COPD): No Hx Cancer: No Hx Cardiac Disorders: No Hx Congestive Heart Failure: No Hx Hypertension: Yes (Amlodipine) Hx Hypercholesterolemia: No Hx Pacemaker: No HX Cerebrovascular Accident: No Hx Seizures: No Hx Dementia: No Hx Diabetes: No Hx Gastrointestinal Disorders: No Hx Liver Disease: No Hx Genitourinary Disorders: No Hx Sexually Transmitted Disorders: No Hx Renal Disease (ESRD): No Hx Thyroid Disease: No Hx Human Immunodeficiency Virus (HIV): No Hx Hepatitis C: Yes (treated last year) Hx Depression: No Hx Suicide Attempt: No Hx Bipolar Disorder: No Hx Schizophrenia: No - Patient Surgical History Past Surgical History: No Hx Neurologic Surgery: No Hx Cataract Extraction: No Hx Cardiac Surgery: No Hx Lung Surgery: No Hx Abdominal Surgery: No Hx Appendectomy: No Hx Cholecystectomy: No Hx Genitourinary Surgery: No Hx Orthopedic Surgery: No Anesthesia Reaction: No - PPD History Date: 09/10/18 Results: 0 mm - Reproductive History Patient is a Female of Child Bearing Age (11 -55 yrs old): No (male) - Smoking Cessation Smoking history: Current every day smoker Have you smoked in the past 12 months: Yes Aproximately how many cigarettes per day: 10 Cigars Per Day: 0 Hx Chewing Tobacco Use: No Initiated information on smoking cessation: Yes 'Breaking Loose' booklet given: 04/08/19 - Substances abused Heroin Other (specify): SNIFF Frequency: Daily Amount used: 20 BAGS Age of first use: 18 Date of last use: 04/08/19 Alprazolam (Xanax) Substance route: Oral Frequency: Daily Amount used: 2/2MG Age of first use: 28 Date of last use: 04/08/19 Family Disease History - Family Disease History Family Disease History: Other: Grandparent (), Father (living, healthy) , Mother (living, healthy), Sister (5 , healthy), Son (one - healthy), Daughter (two - healthy) Admission Physical Exam [facility] - Vital Signs Vital Signs: Vital Signs - 24 hr 04/08/19 20:48 Temperature 98.1 F Pulse Rate 62 Respiratory 18 Rate Blood Pressure 117/71 - Physical General Appearance: Yes: Moderate Distress, Anxious HEENTM: Yes: Within Normal Limits Respiratory: Yes: Lungs Clear, Normal Breath Sounds, No Respiratory Distress Neck: Yes: Supple Breast: Yes: Breast Exam Deferred Cardiology: Yes: Regular Rhythm, Regular Rate Abdominal: Yes: Normal Bowel Sounds Genitourinary: Yes: Within Normal Limits Back: Yes: Normal Inspection Musculoskeletal: Yes: Back pain, Muscle Pain Extremities: Yes: Tremors Neurological: Yes: Within Normal Limits Integumentary: Yes: Warm Lymphatic: Yes: Within Normal Limits - Diagnostic (1) Opioid dependence on agonist therapy Current Visit: Yes Status: Chronic (2) Sedative hypnotic or anxiolytic dependence Current Visit: Yes Status: Chronic (3) HTN (hypertension) Current Visit: Yes Status: Chronic Qualifiers: Hypertension type: essential hypertension Qualified Code(s): I10 - Essential (primary) hypertension Comment: states related to drinking (4) Hepatitis C Current Visit: No Status: Chronic Cleared for Admission [facility] - Detox or Rehab [facility] Level of Care: Medically Managed Detox Regimen/Protocol: Methadone/Valium Inpatient Rehab Admission - Rehab Decision to Admit Inpatient rehab admission?: No
[2019-04-08] MEDS ORDERED: cloNIDine HCL 0.1 MG TABLET PO PRN (23:09)
[2019-04-08] MEDS ORDERED: BISMUTH SUBSALICYLATE 524 MG/30 ML UD PO PRN (23:09)
[2019-04-08] MEDS ORDERED: hydrOXYzine PAMOATE 25 MG CAPSULE (FP) PO PRN (23:09)
[2019-04-08] MEDS ORDERED: METHOCARBAMOL 500 MG TABLET PO PRN (23:09)
[2019-04-08] MEDS ORDERED: MAG HYDROX/AL HYDROX/SIMETH 30 ML UNIT-DOSE CUP PO PRN (23:09)
[2019-04-08] MEDS ORDERED: MENTHOL/PHENOL 1 EACH UD MM PRN (23:09)
[2019-04-08] MEDS ORDERED: MAGNESIUM HYDROX 2400MG/30ML ORAL SUSPENSION 30 ML CUP PO PRN (23:09)
[2019-04-08] MEDS ORDERED: ACETAMINOPHEN 325 MG TABLET (FP) PO PRN ×2 (23:09)
[2019-04-08] MEDS ORDERED: NICOTINE POLACRILEX 2 MG GUM BUC PRN (23:09)
[2019-04-08] MEDS ORDERED: diazePAM 5 MG TABLET PO PRN (23:09)
[2019-04-08] MEDS ORDERED: METHADONE HCL 10 MG TABLET (FOR DETOX USE ONLY) PO ONE (23:09)
[2019-04-08] MEDS ORDERED: MAGNESIUM CITRATE 300 ML BOTTLE PO PRN (23:09)
[2019-04-09] MEDS ORDERED: diazePAM 5 MG TABLET PO SCH (06:00)
[2019-04-09] MEDS ORDERED: METHADONE HCL 5 MG TABLET (FOR DETOX USE ONLY) ONE (09:23)
[2019-04-09] MEDS ORDERED: METHADONE HCL 10 MG TABLET (FOR DETOX USE ONLY) ONE (09:24)
[2019-04-09 09:54] LABS: HEMATOCRIT 39.1 % (35.4-49); MCH 33.1 pg (25.7-33.7); MCHC 33.3 g/dl (32.0-35.9); MEAN CELL VOLUME 99.3 fl (80-96); PLATELET COUNT 208 K/MM3 (134-434); RBC 3.94 M/mm3 (4.00-5.60); RDW 12.6 % (11.9-15.9); WHITE BLOOD COUNT 7.3 K/mm3 (4.0-10.0)
[2019-04-09] MEDS ORDERED: METHADONE (DETOX) 20 MG, METHADONE (DETOX) 5 MG PO ONE (10:00)
[2019-04-09 10:06] LABS: ALBUMIN 2.9 g/dl (3.4-5.0); BILIRUBIN,TOTAL 0.6 mg/dL (0.2-1); BLOOD UREA NITROGEN 9.5 mg/dL (7-18); CALCIUM 8.3 mg/dL (8.5-10.1); CREATININE 0.9 mg/dL (0.55-1.3)
[2019-04-09] MEDS: PRENATAL VITAMINS W/ FOLIC ACID TABLET (FP) PO SCH (10:07)
[2019-04-09] MEDS: NICOTINE 14 MG/24 HOURS TOPICAL PATCH TD SCH (10:07)
[2019-04-09] MEDS: amLODIPine BESYLATE 10 MG TABLET (FP) PO SCH (10:07)
[2019-04-09] MEDS: diazePAM 5 MG TABLET PO PRN ×2 (10:09→17:13)
--- NOTE | 2019-04-09 12:15 | PN ---
S CIWA - CIWA Score Nausea/Vomitin Muscle Tremors: 2 Anxiety: 2 Agitation: 2 Paroxysmal Sweats: 1-Minimal Palms Moist Orientation: 0-Oriented Tacttile Disturbances: 1-Very Mild Itch/Numbness Auditory Disturbances: 1-Very Mild Visual Disturbances: 0-None Headache: 2-Mild CIWA-Ar Total Score: 13 BHS COWS - Scale Resting Pulse: 0= [place] 80 or Below Sweatin= Chills/Flushing Restless Observation: 1= Difficult to Sit Still Pupil Size: 1= Pupils >than Normal Bone or Joint Aches: 2= Severe Diffuse Aches Runny Nose/ Eye Tearin= Nasal Congestion GI Upset > 30mins: 2= Nausea/Diarrhea Tremor Observation of Outstretched Hands: 2= Slight Tremor Visible Yawning Observation: 1= 1-2x During Session Anxiety or Irritability: 2=Irritable/Anxious Goose Flesh Skin: 0=Smooth Skin COWS Score: 13 BHS Progress Note (SOAP) Subjective: alert,irritable,anxious,interrupted sleep,tremor,pain in the body and back Objective: 04/09/19 12:11 Vital Signs Temperature 98.1 F 04/09/19 09:33 Pulse Rate 62 04/09/19 09:33 Respiratory Rate 18 04/09/19 09:33 Blood Pressure 120/85 04/09/19 09:33 O2 Sat by Pulse Oximetry (%) 04/09/19 12:15 Laboratory Last Values WBC 7.3 K/mm3 (4.0-10.0) 04/09/19 06:30 RBC 3.94 M/mm3 (4.00-5.60) L 04/09/19 06:30 Hgb 13.0 GM/dL (11.7-16.9) 04/09/19 06:30 Hct 39.1 % (35.4-49) D 04/09/19 06:30 MCV 99.3 fl (80-96) H 04/09/19 06:30 MCH 33.1 pg (25.7-33.7) 04/09/19 06:30 MCHC 33.3 g/dl (32.0-35.9) 04/09/19 06:30 RDW 12.6 % (11.9-15.9) 04/09/19 06:30 Plt Count 208 K/MM3 (134-434) 04/09/19 06:30 MPV 9.0 fl (7.5-11.1) 04/09/19 06:30 Sodium 141 mmol/L (136-145) 04/09/19 06:30 Potassium 4.0 mmol/L (3.5-5.1) 04/09/19 06:30 Chloride 104 mmol/L (98-107) 04/09/19 06:30 Carbon Dioxide 32 mmol/L (21-32) 04/09/19 06:30 Anion Gap 4 MMOL/L (8-16) L 04/09/19 06:30 BUN 9.5 mg/dL (7-18) 04/09/19 06:30 Creatinine 0.9 mg/dL (0.55-1.3) 04/09/19 06:30 Est GFR (CKD-EPI)AfAm 115.83 04/09/19 06:30 Est GFR (CKD-EPI)NonAf 99.94 04/09/19 06:30 Random Glucose 102 mg/dL (74-106) 04/09/19 06:30 Calcium 8.3 mg/dL (8.5-10.1) L 04/09/19 06:30 Total Bilirubin 0.6 mg/dL (0.2-1) 04/09/19 06:30 AST 19 U/L (15-37) 04/09/19 06:30 ALT 50 U/L (13-61) 04/09/19 06:30 Alkaline Phosphatase 85 U/L (45-117) 04/09/19 06:30 Total Protein 6.0 g/dl (6.4-8.2) L 04/09/19 06:30 Albumin 2.9 g/dl (3.4-5.0) L 04/09/19 06:30 04/09/19 12:16 rpr pending Assessment: 04/09/19 12:16 withdrawal symptom Plan: continue detox
[2019-04-09] MEDS: diazePAM 5 MG TABLET PO SCH ×2 (13:19→22:39)
--- NOTE | 2019-04-09 13:46 | EKG ---
Test Reason : Blood Pressure : / mmHG Vent. Rate : 059 BPM Atrial Rate : 059 BPM P-R Int : 138 ms QRS Dur : 086 ms QT Int : 452 ms P-R-T Axes : 043 032 033 degrees QTc Int : 447 ms SINUS BRADYCARDIA OTHERWISE NORMAL ECG WHEN COMPARED WITH ECG OF 10-JUN-2017 14:11, T WAVE AMPLITUDE HAS DECREASED IN ANTERIOR LEADS Confirmed by MD SOURAV, ARASELI ([id number]) on 04/09/2019 1:46:22 PM Referred By: Confirmed By:ARASELI BENJAMIN MD
[2019-04-09] MEDS: THIAMINE HCL 100 MG TABLET (FP) PO SCH (22:39)
[2019-04-09] MEDS: MELATONIN 5 MG TABLETS PO PRN (22:39)
[2019-04-10] MEDS ORDERED: diazePAM 5 MG TABLET PO ONE (06:00)
[2019-04-10] MEDS: diazePAM 5 MG TABLET PO SCH ×3 (07:18→22:27)
[2019-04-10] MEDS ORDERED: METHADONE HCL 10 MG TABLET (FOR DETOX USE ONLY) PO ONE (10:00)
[2019-04-10] MEDS: amLODIPine BESYLATE 10 MG TABLET (FP) PO SCH (10:25)
[2019-04-10] MEDS: PRENATAL VITAMINS W/ FOLIC ACID TABLET (FP) PO SCH (10:25)
[2019-04-10] MEDS: NICOTINE 14 MG/24 HOURS TOPICAL PATCH TD SCH (10:26)
[2019-04-10] MEDS: diazePAM 5 MG TABLET PO PRN ×2 (10:28→15:42)
[2019-04-10] MEDS: IBUPROFEN 400 MG TABLET (FP) PO PRN (10:31)
--- NOTE | 2019-04-10 13:42 | PN ---
[facility] CIWA - CIWA Score Nausea/Vomitin-No Nausea/No Vomiting Muscle Tremors: 3 Anxiety: 3 Agitation: 3 Paroxysmal Sweats: 1-Minimal Palms Moist Orientation: 0-Oriented Tacttile Disturbances: 0-None Auditory Disturbances: 0-None Visual Disturbances: 0-None Headache: 0-None Present CIWA-Ar Total Score: 10 S COWS - Scale Resting Pulse: 0= [place] 80 or Below Sweatin= Chills/Flushing Restless Observation: 0= Sits Still Pupil Size: 0= Normal to Room Light Bone or Joint Aches: 1= Mild Discomfort Runny Nose/ Eye Tearin= None GI Upset > 30mins: 0= None Tremor Observation of Outstretched Hands: 2= Slight Tremor Visible Yawning Observation: 1= 1-2x During Session Anxiety or Irritability: 2=Irritable/Anxious Goose Flesh Skin: 0=Smooth Skin COWS Score: 7 S Progress Note (SOAP) Subjective: C/O MILD WITHDRAWAL SX. DETOX PROCEEDING WELL. PT REPORTS AN AREA OF OLD HEALED FACIAL BRUISE ON FOREHEAD WHICH IS NOW A DARK DISCOLORATION. PT REQUESTING A/D OINTMENT. EXPLAINED TO PATIENT THE PROCESS OF WOUND HEALING AND PIGMENTATION. Objective: 04/10/19 13:47 Vital Signs - 24 hr 04/09/19 04/09/19 04/10/19 17:07 21:47 00:30 Temperature 97.7 F 98.1 F Pulse Rate 57 L 62 Respiratory 18 18 18 Rate Blood Pressure 120/72 123/70 04/10/19 04/10/19 04/10/19 03:30 08:09 09:31 Temperature 98.1 F 98.4 F Pulse Rate 50 L 60 Respiratory 18 18 20 Rate Blood Pressure 129/67 115/69 04/10/19 13:15 Temperature 98.5 F Pulse Rate 64 Respiratory 18 Rate Blood Pressure 119/82 Laboratory Tests 04/09/19 04/09/19 04/09/19 06:30 06:30 06:30 WBC 7.3 RBC 3.94 L Hgb 13.0 Hct 39.1 D MCV 99.3 H MCH 33.1 MCHC 33.3 RDW 12.6 Plt Count 208 MPV 9.0 Sodium 141 Potassium 4.0 Chloride 104 Carbon Dioxide 32 Anion Gap 4 L BUN 9.5 Creatinine 0.9 Est GFR (CKD-EPI)AfAm 115.83 Est GFR (CKD-EPI)NonAf 99.94 Random Glucose 102 Calcium 8.3 L Total Bilirubin 0.6 AST 19 ALT 50 Alkaline Phosphatase 85 Total Protein 6.0 L Albumin 2.9 L RPR Titer Nonreactive Assessment: 04/10/19 13:47 WITHDRAWAL SX SKIN DISCOLORATION RELATED TO OLD FACIAL BRUISE. Plan: CONTINUE DETOX A&D OINTMENT DIRECTED PER PT'S REQUEST.
[2019-04-10] MEDS: VITAMINS A AND D TOPICAL OINTMENT 60 GM TUBE TP SCH ×2 (13:50→22:27)
[2019-04-10] MEDS: MELATONIN 5 MG TABLETS PO PRN (22:27)
[2019-04-10] MEDS: THIAMINE HCL 100 MG TABLET (FP) PO SCH (22:27)
[2019-04-11] MEDS: diazePAM 5 MG TABLET PO SCH ×3 (07:17→19:00)
[2019-04-11] MEDS ORDERED: METHADONE HCL 10 MG TABLET (FOR DETOX USE ONLY) ONE (08:46)
[2019-04-11] MEDS ORDERED: METHADONE HCL 5 MG TABLET (FOR DETOX USE ONLY) ONE (08:46)
[2019-04-11] MEDS ORDERED: METHADONE (DETOX) 10 MG, METHADONE (DETOX) 5 MG PO ONE (10:00)
[2019-04-11] MEDS: amLODIPine BESYLATE 10 MG TABLET (FP) PO SCH (10:06)
[2019-04-11] MEDS: PRENATAL VITAMINS W/ FOLIC ACID TABLET (FP) PO SCH (10:06)
[2019-04-11] MEDS: VITAMINS A AND D TOPICAL OINTMENT 60 GM TUBE TP SCH ×2 (10:06→22:33)
[2019-04-11] MEDS: NICOTINE 14 MG/24 HOURS TOPICAL PATCH TD SCH (10:08)
--- NOTE | 2019-04-11 10:09 | PN ---
S CIWA - CIWA Score Nausea/Vomitin-No Nausea/No Vomiting Muscle Tremors: 2 Anxiety: 1-Mildly Anxious Agitation: 0-Normal Activity Paroxysmal Sweats: 2 Orientation: 0-Oriented Tacttile Disturbances: 0-None Auditory Disturbances: 0-None Visual Disturbances: 0-None Headache: 2-Mild CIWA-Ar Total Score: 7 BHS COWS - Scale Resting Pulse: 0= [place] 80 or Below Sweatin= Chills/Flushing Restless Observation: 1= Difficult to Sit Still Pupil Size: 0= Normal to Room Light Bone or Joint Aches: 1= Mild Discomfort Runny Nose/ Eye Tearin= None GI Upset > 30mins: 0= None Tremor Observation of Outstretched Hands: 2= Slight Tremor Visible Yawning Observation: 1= 1-2x During Session Anxiety or Irritability: 2=Irritable/Anxious Goose Flesh Skin: 0=Smooth Skin COWS Score: 8 S Progress Note (SOAP) Subjective: c/o irritability, sweats, anxiety, and mild shakes. Objective: 04/11/19 10:06 Vital Signs 04/11/19 04/11/19 03:30 06:00 Temperature 98.1 F Pulse Rate 50 L Respiratory 18 18 Rate Blood Pressure 113/66 Lab Results WBC 7.3 K/mm3 (4.0-10.0) 04/09/19 06:30 RBC 3.94 M/mm3 (4.00-5.60) L 04/09/19 06:30 Hgb 13.0 GM/dL (11.7-16.9) 04/09/19 06:30 Hct 39.1 % (35.4-49) D 04/09/19 06:30 MCV 99.3 fl (80-96) H 04/09/19 06:30 MCHC 33.3 g/dl (32.0-35.9) 04/09/19 06:30 RDW 12.6 % (11.9-15.9) 04/09/19 06:30 Plt Count 208 K/MM3 (134-434) 04/09/19 06:30 Sodium 141 mmol/L (136-145) 04/09/19 06:30 Potassium 4.0 mmol/L (3.5-5.1) 04/09/19 06:30 Chloride 104 mmol/L (98-107) 04/09/19 06:30 Carbon Dioxide 32 mmol/L (21-32) 04/09/19 06:30 Anion Gap 4 MMOL/L (8-16) L 04/09/19 06:30 BUN 9.5 mg/dL (7-18) 04/09/19 06:30 Creatinine 0.9 mg/dL (0.55-1.3) 04/09/19 06:30 Random Glucose 102 mg/dL (74-106) 04/09/19 06:30 Calcium 8.3 mg/dL (8.5-10.1) L 04/09/19 06:30 Labs noted. Assessment: 04/11/19 10:06 AOX3, in no acute respiratory distress Full ROM, ambulating in the unit. withdrawal symptoms. Plan: continue detox.
[2019-04-11] MEDS: diazePAM 5 MG TABLET PO PRN ×2 (14:31→22:32)
[2019-04-11] MEDS: THIAMINE HCL 100 MG TABLET (FP) PO SCH (22:32)
[2019-04-11] MEDS: MELATONIN 5 MG TABLETS PO PRN (22:33)
[2019-04-11] MEDS: IBUPROFEN 400 MG TABLET (FP) PO PRN (22:33)
[2019-04-12] MEDS ORDERED: diazePAM 5 MG TABLET PO ONE (06:00)
[2019-04-12] MEDS ORDERED: METHADONE HCL 10 MG TABLET (FOR DETOX USE ONLY) PO ONE (10:00)
[2019-04-12] MEDS: amLODIPine BESYLATE 10 MG TABLET (FP) PO SCH (10:16)
[2019-04-12] MEDS: PRENATAL VITAMINS W/ FOLIC ACID TABLET (FP) PO SCH (10:16)
[2019-04-12] MEDS: NICOTINE 14 MG/24 HOURS TOPICAL PATCH TD SCH (10:16)
--- NOTE | 2019-04-12 10:16 | PN ---
[facility] CIWA - CIWA Score Nausea/Vomitin-No Nausea/No Vomiting Muscle Tremors: 1-None Visible, but [place] Anxiety: 1-Mildly Anxious Agitation: 1-Slight > Activity Paroxysmal Sweats: No Perspiration Orientation: 0-Oriented Tacttile Disturbances: 0-None Auditory Disturbances: 0-None Visual Disturbances: 0-None Headache: 1-Very Mild CIWA-Ar Total Score: 4 S COWS - Scale Resting Pulse: 0= [place] 80 or Below Sweatin= No chills or Flushing Restless Observation: 0= Sits Still Pupil Size: 0= Normal to Room Light Bone or Joint Aches: 1= Mild Discomfort Runny Nose/ Eye Tearin= Nasal Congestion GI Upset > 30mins: 0= None Tremor Observation of Outstretched Hands: 1= Tremor [place], Not Seen Yawning Observation: 0= None Anxiety or Irritability: 1=Feels Anxious/Irritable Goose Flesh Skin: 0=Smooth Skin COWS Score: 4 S Progress Note (SOAP) Subjective: alert,no complaint Objective: 04/12/19 10:16 Vital Signs Temperature 97.0 F L 04/12/19 06:34 Pulse Rate 58 L 04/12/19 06:34 Respiratory Rate 18 04/12/19 06:34 Blood Pressure 122/76 04/12/19 06:34 O2 Sat by Pulse Oximetry (%) Assessment: no withdrawal symptom Plan: patient is stable to go to rehab today,discharge from detox
[2019-04-12] MEDS: VITAMINS A AND D TOPICAL OINTMENT 60 GM TUBE TP SCH (10:17)
--- NOTE | 2019-04-12 11:22 | DS ---
[facility] Detox Discharge Summary Admission Date: 04/08/19 Discharge Date: 04/12/19 - History Present History: Alcohol Dependence, Opioid Dependence Additional Comments: follow up with rehab as arrangement Pertinent Past History: hepatitis c hypertension - Physical Exam Results Vital Signs: Vital Signs Temperature 97.0 F L 04/12/19 06:34 Pulse Rate 58 L 04/12/19 06:34 Respiratory Rate 18 04/12/19 06:34 Blood Pressure 122/76 04/12/19 06:34 O2 Sat by Pulse Oximetry (%) Pertinent Admission Physical Exam Findings: withdrawal signs and symptom Laboratory Last Values WBC 7.3 K/mm3 (4.0-10.0) 04/09/19 06:30 RBC 3.94 M/mm3 (4.00-5.60) L 04/09/19 06:30 Hgb 13.0 GM/dL (11.7-16.9) 04/09/19 06:30 Hct 39.1 % (35.4-49) D 04/09/19 06:30 MCV 99.3 fl (80-96) H 04/09/19 06:30 MCH 33.1 pg (25.7-33.7) 04/09/19 06:30 MCHC 33.3 g/dl (32.0-35.9) 04/09/19 06:30 RDW 12.6 % (11.9-15.9) 04/09/19 06:30 Plt Count 208 K/MM3 (134-434) 04/09/19 06:30 MPV 9.0 fl (7.5-11.1) 04/09/19 06:30 Sodium 141 mmol/L (136-145) 04/09/19 06:30 Potassium 4.0 mmol/L (3.5-5.1) 04/09/19 06:30 Chloride 104 mmol/L (98-107) 04/09/19 06:30 Carbon Dioxide 32 mmol/L (21-32) 04/09/19 06:30 Anion Gap 4 MMOL/L (8-16) L 04/09/19 06:30 BUN 9.5 mg/dL (7-18) 04/09/19 06:30 Creatinine 0.9 mg/dL (0.55-1.3) 04/09/19 06:30 Est GFR (CKD-EPI)AfAm 115.83 04/09/19 06:30 Est GFR (CKD-EPI)NonAf 99.94 04/09/19 06:30 Random Glucose 102 mg/dL (74-106) 04/09/19 06:30 Calcium 8.3 mg/dL (8.5-10.1) L 04/09/19 06:30 Total Bilirubin 0.6 mg/dL (0.2-1) 04/09/19 06:30 AST 19 U/L (15-37) 04/09/19 06:30 ALT 50 U/L (13-61) 04/09/19 06:30 Alkaline Phosphatase 85 U/L (45-117) 04/09/19 06:30 Total Protein 6.0 g/dl (6.4-8.2) L 04/09/19 06:30 Albumin 2.9 g/dl (3.4-5.0) L 04/09/19 06:30 RPR Titer Nonreactive (NONREACTIVE) 04/09/19 06:30 - Treatment Hospital Course: Detox Protocol Followed, Detoxed Safely - Medication Discharge Medications: Ambulatory Orders Amlodipine Besylate 10 mg PO DAILY #14 tablet 09/17/18 - Diagnosis (1) Opioid dependence with withdrawal Current Visit: No Status: Acute (2) HTN (hypertension) Current Visit: Yes Status: Chronic Qualifiers: Hypertension type: essential hypertension Qualified Code(s): I10 - Essential (primary) hypertension (3) Sedative hypnotic or anxiolytic dependence Current Visit: Yes Status: Chronic (4) Hepatitis C Current Visit: No Status: Chronic - AMA Did Patient Leave Against Medical Advice: No
[2019-04-12 11:30] VITALS: TEMP 97.5
[2019-04-12 14:04] VITALS: BP 121/65; PULSE 61
[2019-04-13] MEDS ORDERED: METHADONE HCL 5 MG TABLET (FOR DETOX USE ONLY) PO ONE (06:00)
== END 2019-04-12 15:44 | disposition other institution (70) | DRG 773 ==
LOC: YASAS 19:28 → Y6N 23:19
PROVIDERS: ADMIT Surgery; ATTEND Surgery
PROC: HZ2ZZZZ Detoxification Services for Substance Abuse Treatment (ICD-10-PCS; principal; 2019-04-08)
DX: F11.23 Opioid dependence with withdrawal (principal); F13.20 Sedative, hypnotic or anxiolytic dependence, uncomplicated; I10 Essential (primary) hypertension; B18.2 Chronic viral hepatitis C
CPT/HCPCS: 36415; 80053; 85027; 86593; 93005; 93010

== ENCOUNTER 2019-04-12 15:59 | Inpatient (IN) | payer OTHER ==
[2019-04-12] MEDS ORDERED: ACETAMINOPHEN 325 MG TABLET (FP) PO PRN (16:06)
[2019-04-12] MEDS ORDERED: P-EPHED 60MG/TRIPROLIDI 2.5MG TABLET PO PRN (16:06)
[2019-04-12] MEDS ORDERED: LOPERAMIDE HCL 2 MG CAPSULE PO PRN (16:06)
[2019-04-12] MEDS ORDERED: IBUPROFEN 400 MG TABLET (FP) PO PRN (16:06)
[2019-04-12] MEDS ORDERED: MAGNESIUM HYDROX 2400MG/30ML ORAL SUSPENSION 30 ML CUP PO PRN (16:06)
[2019-04-12] MEDS ORDERED: hydrOXYzine PAMOATE 50 MG CAPSULE (FP) PO PRN (16:06)
[2019-04-12] MEDS ORDERED: MENTHOL/PHENOL 1 EACH UD MM PRN (16:06)
[2019-04-12] MEDS ORDERED: MAG HYDROX/AL HYDROX/SIMETH 30 ML UNIT-DOSE CUP PO PRN (16:06)
[2019-04-12] MEDS ORDERED: MAGNESIUM CITRATE 300 ML BOTTLE PO PRN (16:06)
[2019-04-12] MEDS ORDERED: guaiFENesin 200 MG/10 ML 10 ML UNIT-DOSE CUPS PO PRN (16:06)
--- NOTE | 2019-04-12 16:06 | HP ---
[facility] Rehab Assess/Revision - Admission History Admitted to Rehab from: [facility] Date of Admission to Rehab: 04/14/19 - Findings Detox History & Physical reviewed: Yes Concur with findings: Yes Comments/Additional Findings: for rehab as protocol Inpatient Rehab Admission - Rehab Decision to Admit Inpatient rehab admission?: Yes - Initial Determination Are CD services needed?: Yes Free of communicable disease: Yes Not in need of hospitalization: Yes - Rehab Admission Criteria Previous failed treatment: Yes Poor recovery environment: Yes Comorbidities: Yes Lacks judgement: No Patient is meeting Inpatient Rehab admission criteria:: Yes
[2019-04-12] MEDS: MELATONIN 5 MG TABLETS PO PRN (21:30)
[2019-04-12] MEDS: THIAMINE HCL 100 MG TABLET (FP) PO SCH (21:30)
[2019-04-13] MEDS: PRENATAL VITAMINS W/ FOLIC ACID TABLET (FP) PO SCH (09:58)
[2019-04-13] MEDS: amLODIPine BESYLATE 10 MG TABLET (FP) PO SCH (09:58)
[2019-04-13] MEDS: VITAMINS A AND D TOPICAL OINTMENT 60 GM TUBE TP SCH ×2 (15:55→17:10)
[2019-04-13] MEDS: MELATONIN 5 MG TABLETS PO PRN (21:47)
[2019-04-13] MEDS: THIAMINE HCL 100 MG TABLET (FP) PO SCH (21:47)
[2019-04-14] MEDS: VITAMINS A AND D TOPICAL OINTMENT 60 GM TUBE TP SCH ×5 (00:11→23:15)
[2019-04-14 06:42] VITALS: TEMP 97.9
[2019-04-14] MEDS: PRENATAL VITAMINS W/ FOLIC ACID TABLET (FP) PO SCH (10:08)
[2019-04-14] MEDS: amLODIPine BESYLATE 10 MG TABLET (FP) PO SCH (10:11)
[2019-04-14] MEDS: THIAMINE HCL 100 MG TABLET (FP) PO SCH (21:55)
[2019-04-14] MEDS: MELATONIN 5 MG TABLETS PO PRN (21:56)
[2019-04-15] MEDS: VITAMINS A AND D TOPICAL OINTMENT 60 GM TUBE TP SCH (07:58)
[2019-04-15 09:56] VITALS: BP 120/71; PULSE 66
[2019-04-15] MEDS: amLODIPine BESYLATE 10 MG TABLET (FP) PO SCH (10:42)
[2019-04-15] MEDS: PRENATAL VITAMINS W/ FOLIC ACID TABLET (FP) PO SCH (10:42)
--- NOTE | 2019-04-15 11:59 | PN ---
S Progress Note (SOAP) Subjective: Pt was admitted on 04/12/19 and requesting to leave treatment today for personal reasons, stating I'm bored, it,s too quiet on this unit". Pt was initially spoken to earlier in the morning and encouraged to stay by this chief underwriter. pt was agreeable to continue treatment but came back to say he made up his mind to leave treatment. Pt was directed to see his counselor for aftercare referral. P declined to speak about primary care when asked and stated "It's irrelevant to know my DrSonny's name. I have my own doctor and medication". pt is alert o x 3. Denies S/H/I. Objective: 04/15/19 11:59 Vital Signs - 24 hr 04/15/19 04/15/19 04/15/19 00:30 03:30 07:36 Pulse Rate Respiratory 17 18 18 Rate Blood Pressure 04/15/19 09:55 Pulse Rate 66 Respiratory Rate Blood Pressure 120/71 Assessment: 04/15/19 11:59 Nad Opioid dependece xanax use disorder Hypertension Hx of Hep C with treatment. Plan: Pt signed out AMA Follow up with aftercare referral Follow up with PCP as needed.
== END 2019-04-15 10:45 | disposition left against medical advice (07) | DRG 770 ==
LOC: YASAS 15:59 → Y5N 16:02
PROVIDERS: ADMIT Neuromusculoskeletal Medicine & OMM; ATTEND Neuromusculoskeletal Medicine & OMM
PROC: HZ41ZZZ Group Counseling for Substance Abuse Treatment, Behavioral (ICD-10-PCS; principal; 2019-04-12)
DX: F10.20 Alcohol dependence, uncomplicated (principal); F13.20 Sedative, hypnotic or anxiolytic dependence, uncomplicated; I10 Essential (primary) hypertension; B18.2 Chronic viral hepatitis C